=== PATIENT | male | born 1955 | race Caucasian/White ===

== ENCOUNTER 2019-05-28 18:35 | Inpatient (IN) | payer OTHER ==
[2019-05-28] MEDS ORDERED: Dextrose 50% Abboject 50 ML SYRINGE IVP PRN (20:17)
[2019-05-28] MEDS ORDERED: HumaLOG 300 UNITS/3 ML VIAL SC PRN (20:17)
[2019-05-28] MEDS ORDERED: Dextrose 5% in Water 1,000 ML IV PRN (20:17)
[2019-05-28] MEDS ORDERED: Haloperidol Lactate 5 MG/ML VIAL IM PRN (20:19)
[2019-05-28] MEDS ORDERED: Lorazepam 2 MG/ML VIAL SLOW IVP PRN (20:20)
[2019-05-28] MEDS: Carvedilol 6.25 MG TAB PO SCH (21:33)
[2019-05-28] MEDS: Famotidine 20 MG TAB PO SCH (21:33)
[2019-05-28] MEDS: Pregabalin 50 MG CAP PO SCH (21:34)
[2019-05-28] MEDS: Lantus 1000 UNITS/10 ML VIAL SC SCH (21:35)
[2019-05-28] MEDS: Apixaban 5 MG TAB PO SCH (21:35)
[2019-05-29] MEDS: Piperacillin/Tazobactam 3.375 GM in Sodium Chloride 0.9% 100 ML IVPB SCH ×3 (00:09→11:57)
[2019-05-29] MEDS: HumaLOG 300 UNITS/3 ML VIAL SC PRN ×2 (05:29→11:58)
[2019-05-29 05:59] LABS: #Basophils 0.1 thou/uL (0.0-0.2); #Eosinphils 0.2 thou/uL (0.0-0.7); #Lymphocytes 1.3 thou/uL (1.20-3.40); #Neutrophils 4.9 thou/uL (1.40-6.50); %Basophils 1.2 % (0.0-1.0); %Eosinophils 2.4 % (0.0-10.0); %Lymphocytes 17.8 % (21.0-51.0); %Monocytes 13.2 % (0.0-10.0); %Neutrophils 65.4 % (42.0-75.0); Hemoglobin 11.2 g/dL (14.0-18.0); Mean Corpuscular HGB CONC 32.2 g/dL (32.0-36.0); Mean Corpuscular Hemoglobin 27.5 pg (27.0-31.0); Mean Corpuscular Volume 85.3 fL (78.0-98.0); Mean Platelet Volume 7.3 fL (7.4-10.4); Platelet Count 136 thou/uL (130-400); RBC Distribution Width 15.4 % (11.5-14.5); Red Blood Cell (RBC) Count 4.08 mill/uL (4.70-6.10); White Blood Cell (WBC) Count 7.4 thou/uL (4.8-10.8)
[2019-05-29 06:18] LABS: ALT (SGPT) 14 U/L (8-55); AST (SGOT) 16 U/L (5-34); Albumin 3.3 g/dL (3.4-4.8); Alkaline Phosphatase 63 U/L (40-110); Anion Gap 13 mmol/L (10-20); BUN (Urea Nitrogen) 14 mg/dL (8.4-25.7); Bilirubin, Total 0.8 mg/dL (0.2-1.2); Calc. Creatinine Clearance 87 mL/min (70-130); Calcium 8.7 mg/dL (7.8-10.44); Carbon Dioxide 26 mmol/L (23-31); Chloride 104 mmol/L (98-107); Estimated GFR-MDRD 58; Globulin 2.7 g/dL (2.4-3.5); Glucose 169 mg/dL (80-115); Potassium 3.8 mmol/L (3.5-5.1); Sodium 139 mmol/L (136-145)
[2019-05-29] MEDS: Pregabalin 50 MG CAP PO SCH ×3 (09:17→22:07)
[2019-05-29] MEDS: Carvedilol 6.25 MG TAB PO SCH ×2 (09:17→21:13)
[2019-05-29] MEDS: Apixaban 5 MG TAB PO SCH ×2 (09:18→21:12)
[2019-05-29] MEDS: Rosuvastatin 10 MG TAB PO SCH (09:18)
[2019-05-29] MEDS: Dronedarone HCl 400 MG TAB PO SCH ×2 (09:18→17:44)
[2019-05-29] MEDS: Famotidine 20 MG TAB PO SCH ×2 (09:18→21:12)
[2019-05-29] MEDS: Potassium Chloride 20 MEQ TAB PO SCH (09:18)
[2019-05-29] MEDS: Lantus 1000 UNITS/10 ML VIAL SC SCH ×2 (09:19→21:15)
--- NOTE | 2019-05-29 14:12 | HP ---
CHIEF COMPLAINT: 1. Bilateral CVA, occipital lobe and temporal lobe, likely embolic. 2. Atrial fibrillation. 3. Right foot osteomyelitis. 4. IV antibiotics and physical therapy. BRIEF HISTORY: This is a 64-year-old male, who was admitted to [facility] on May 16 with altered mental status. He was initially placed on CPAP for respiratory distress and worked up for CVA. He apparently had a seizure on admission and was given Keppra and Ativan. He was switched over to BiPAP and continued to have respiratory distress and so he was sedated, intubated, and mechanically ventilated. His workup did confirm bilateral occipital CVA consistent with an embolic shower. MR angiogram showed nonspecific vessel narrowing which was felt to be not significant. Carotid Dopplers are negative for any stenosis. Transthoracic echocardiogram showed a dilated atrium, but did not show any obvious thrombus. He did not have a SANFORD. He was started on Eliquis. He was also noted to have bilateral foot ulcers and cultures grew E coli and Pseudomonas. There is concern for osteomyelitis, and Dr. Sanz has recommended 4 weeks of IV antibiotic with Zerbaxa instead of Zosyn and aminoglycoside combination, which may affect his kidneys. Currently, the patient is up in bed and still having some orientation issues. He was not sure what today is. He states that he wants to go home and I tried to explain to him that he is due to get 4 weeks of IV antibiotics and a wound VAC, which he unfortunately removed it prior to his transfer here. I told him that coming Friday the liturgical music director can try to contact his insurance and see if doing outpatient antibiotic is feasible. I also told him he needs to be cleared by therapy that he is safe to go home and do his activities of daily living. No family at bedside. PAST MEDICAL HISTORY: 1. Diabetes mellitus, type 2. 2. Peripheral vascular disease. 3. Hypertension. 4. Dyslipidemia. 5. Diabetic peripheral neuropathy. PAST SURGICAL HISTORY: 1. Right second toe amputation. 2. History of foot ulcer debridement. ALLERGIES: SEAFOOD. FAMILY HISTORY: Noncontributory. PSYCHOSOCIAL HISTORY: . Denies any current tobacco, alcohol, or recreational drug abuse. MEDICATIONS: He has been transferred here on the following medications: 1. Eliquis 5 mg b.i.d. 2. Carvedilol 12.5 mg b.i.d. 3. Multaq 400 mg b.i.d. 4. Pepcid 20 mg b.i.d. 5. Haldol 2.5 mg IM q.4 hours p.r.n. agitation. 6. Lantus 20 units subcu b.i.d. 7. Humalog sliding scale. 8. Dilantin 100 mg t.i.d. 9. He is currently on Zosyn 3.375 g q.6 hours, but he will be switched to the Zerbaxa once available. 10. He is also on potassium 40 mEq daily. 11. Lyrica 100 mg t.i.d. 12. Crestor 40 mg daily. REVIEW OF SYSTEMS: CARDIOVASCULAR SYSTEM: The patient denies any chest pain, shortness of breath, palpitations, PND, orthopnea, or pedal edema. RESPIRATORY SYSTEM: Denies any chronic cough, expectoration, or pleuritic type chest pain. GASTROINTESTINAL SYSTEM: Denies any nausea, vomiting, diarrhea, constipation, hematemesis, melena, or hematochezia. GENITOURINARY SYSTEM: Denies any frequency, urgency, dysuria, or hematuria. CENTRAL NERVOUS SYSTEM: Other than episodes of confusion, he denies any focal numbness, weakness, or fainting spells. HEENT: He denies any difficulty with speech, vision, hearing, or swallowing. SKIN: He denies any rash. PHYSICAL EXAMINATION: GENERAL: A 64-year-old male, who is resting comfortably in bed and denies any concerns. VITAL SIGNS: He is afebrile. Heart rate is 95, respirations 20, blood pressure 155/74, and oxygen saturation 95% on room air. HEENT: Normocephalic and atraumatic. Pupils equally reactive to light and accommodation. Extraocular muscles intact. NECK: No JVD, thyromegaly, cervical lymphadenopathy, or throat exudates. No carotid bruits. CARDIOVASCULAR SYSTEM: S1 and S2 plus. RESPIRATORY SYSTEM: Normal vesicular breath sounds. ABDOMEN: Soft and nontender. Bowel sounds heard in all quadrants. EXTREMITIES: Without cyanosis or clubbing. Dressing over his right foot wound. CENTRAL NERVOUS SYSTEM: Awake and responsive, not oriented to time. Strength is equal and normal. LABORATORY VALUES: White count is 7.4, H and H are 11.2 and 34.8. Sodium 139, potassium 3.8, and BUN and creatinine are 14 and 1.25. Blood sugars are 197, 190, 164, and 169. Liver function tests are within normal limits. IMPRESSION: 1. Right foot osteomyelitis. 2. Embolic cerebrovascular accident involving both occipital lobes. 3. Resolved renal failure. 4. Atrial fibrillation. 5. New onset seizure. 6. Hypertension. 7. Dyslipidemia. 8. Peripheral vascular disease. 9. Wound infection with Escherichia coli and Pseudomonas. PLAN: 1. Continue discharge medications from previous hospital. 2. Start him on the new antibiotic once it is available. 3. 1800 calorie heart healthy ADA diet. 4. Accu-Cheks with sliding scale coverage. 5. Monitor neuro status. 6. Physical therapy. 7. Wound care. 8. Routine laboratory values. 9. Monitor heart rate and rhythm. 10. Seizure precautions. 11. Discussed with the patient and nursing in detail. All questions answered. Job ID: [id number]
[2019-05-29] MEDS ORDERED: CEFTOLOZANE FS SCH (15:30)
[2019-05-29] MEDS ORDERED: TAZOBACTAM FS SCH (15:30)
[2019-05-29] MEDS: TAZOBACTAM FS SCH (21:09)
[2019-05-29] MEDS: CEFTOLOZANE FS SCH (21:09)
[2019-05-30] MEDS: CEFTOLOZANE FS SCH ×3 (05:52→21:42)
[2019-05-30] MEDS: TAZOBACTAM FS SCH ×3 (05:52→21:42)
[2019-05-30 08:11] VITALS: BMI 24.9
[2019-05-30] MEDS: Potassium Chloride 20 MEQ TAB PO SCH (08:59)
[2019-05-30] MEDS: Dronedarone HCl 400 MG TAB PO SCH ×2 (08:59→17:16)
[2019-05-30] MEDS: Carvedilol 6.25 MG TAB PO SCH ×2 (09:04→21:40)
[2019-05-30] MEDS: Apixaban 5 MG TAB PO SCH ×2 (09:04→21:40)
[2019-05-30] MEDS: Rosuvastatin 10 MG TAB PO SCH (09:04)
[2019-05-30] MEDS: Pregabalin 50 MG CAP PO SCH ×3 (09:04→21:41)
[2019-05-30] MEDS: Lantus 1000 UNITS/10 ML VIAL SC SCH ×2 (09:04→21:39)
[2019-05-30] MEDS: Famotidine 20 MG TAB PO SCH ×2 (09:04→21:40)
[2019-05-30] MEDS: HumaLOG 300 UNITS/3 ML VIAL SC PRN (11:57)
--- NOTE | 2019-05-30 15:12 | PRG ---
DATE OF SERVICE: 05/30/2019 SUBJECTIVE: Mr. Rivers is doing well. He is tolerating his new antibiotic, Zerbaxa. Denies any chest pain or shortness of breath. No breakthrough seizures. Family in the room and all questions answered. OBJECTIVE: VITAL SIGNS: He is afebrile, heart rate 68, respirations 18, oxygen saturation 98% on room air, and blood pressure 134/62. CARDIOVASCULAR SYSTEM: S1 and S2 plus. RESPIRATORY SYSTEM: Normal vesicular breath sounds. ABDOMEN: Soft and nontender. Bowel sounds in all quadrants. EXTREMITIES: Without cyanosis or clubbing CENTRAL NERVOUS SYSTEM: Awake and responsive. Generalized weakness. LABORATORY DATA: Blood sugars are 119, 172, 96, and 213. IMPRESSION: 1. Right foot osteomyelitis, requiring IV Zerbaxa until 06/26. 2. Diabetes mellitus, type 2. 3. Hypertension. 4. Dyslipidemia. 5. Peripheral vascular disease. 6. Recent embolic cerebrovascular accident. 7. Atrial fibrillation. 8. New-onset seizures. PLAN: 1. Continue current medications. 2. 1800-calorie heart-healthy ADA diet. 3. Accu-Cheks with sliding scale coverage. 4. DVT prophylaxis, he is on Eliquis. 5. Decubitus precautions. 6. Stress ulcer prophylaxis. 7. Weekly CBC, CRP, CMP, and sedimentation rate. 8. Continue physical therapy. 9. We will have Case Management start working on looking into him getting outpatient antibiotics and wound care. Job ID: [id number]
[2019-05-31] MEDS: CEFTOLOZANE FS SCH ×3 (05:33→21:45)
[2019-05-31] MEDS: TAZOBACTAM FS SCH ×3 (05:33→21:45)
[2019-05-31] MEDS: Dronedarone HCl 400 MG TAB PO SCH ×2 (08:23→17:55)
[2019-05-31] MEDS: Rosuvastatin 10 MG TAB PO SCH (08:24)
[2019-05-31] MEDS: Potassium Chloride 20 MEQ TAB PO SCH (08:26)
[2019-05-31] MEDS: Apixaban 5 MG TAB PO SCH ×2 (08:27→21:41)
[2019-05-31] MEDS: Famotidine 20 MG TAB PO SCH ×2 (08:27→21:38)
[2019-05-31] MEDS: Carvedilol 6.25 MG TAB PO SCH ×2 (08:28→21:38)
[2019-05-31] MEDS: Pregabalin 50 MG CAP PO SCH ×3 (09:55→21:43)
[2019-05-31] MEDS: Lantus 1000 UNITS/10 ML VIAL SC SCH ×2 (11:03→21:40)
--- NOTE | 2019-05-31 14:12 | PRG ---
DATE OF SERVICE: 05/31/2019 SUBJECTIVE: Mr. Rivers is doing well. Denies any complaints. Tolerating his antibiotics. He did have a low blood sugar this morning. He states that normally he takes 10 units twice daily at home. He may have needed 20 units when he was having the inflammatory process, but now that is resolving, he may not need as much. I advised him that I will cut him back down to 10 b.i.d. I also informed the charge nurse to start working on trying to see if he qualifies for outpatient antibiotic therapy and wound VAC care. OBJECTIVE: VITAL SIGNS: He is afebrile. Heart rate 59, respirations 18, oxygen saturation 98% on room air, blood pressure 138/63. CARDIOVASCULAR: S1, S2 plus. RESPIRATORY: Normal vesicular breath sounds. ABDOMEN: Soft, nontender, bowel sounds heard in all quadrants. EXTREMITIES: Without cyanosis or clubbing. Right foot with wound VAC. CENTRAL NERVOUS SYSTEM: Awake and responsive. Grossly nonfocal. LABORATORY DATA: Blood sugars are 213, 77, 155, 54, and 72. IMPRESSION: 1. Diabetes mellitus, type 2. 2. Right foot osteomyelitis. 3. Bilateral occipital lobe embolic cerebrovascular accident. 4. Hypertension. 5. Dyslipidemia. 6. Peripheral vascular disease. 7. Atrial fibrillation. 8. New-onset seizures. PLAN: 1. Continue current medications. 2. 1800-calorie heart healthy ADA diet. 3. Accu-Cheks with sliding scale coverage. 4. DVT prophylaxis - he is on Eliquis. 5. Decubitus precaution. 6. Wound care. 7. Reduce Lantus to 10 units b.i.d. 8. Weekly CBC, CRP, CMP, and sedimentation rate. 9. Case Management to work on seeing if he qualifies for outpatient antibiotic and wound care. Job ID: [id number]
[2019-05-31] MEDS: Sodium Chloride 0.9% 10 ML ONE (21:44)
[2019-06-01] MEDS: TAZOBACTAM FS SCH ×2 (05:57→15:05)
[2019-06-01] MEDS: CEFTOLOZANE FS SCH ×2 (05:57→15:05)
[2019-06-01] MEDS: Pregabalin 50 MG CAP PO SCH ×3 (08:30→21:26)
[2019-06-01] MEDS: Carvedilol 6.25 MG TAB PO SCH ×2 (08:31→21:27)
[2019-06-01] MEDS: Potassium Chloride 20 MEQ TAB PO SCH (08:32)
[2019-06-01] MEDS: Dronedarone HCl 400 MG TAB PO SCH ×2 (08:32→17:15)
[2019-06-01] MEDS: Rosuvastatin 10 MG TAB PO SCH (08:32)
[2019-06-01] MEDS: Famotidine 20 MG TAB PO SCH ×2 (08:32→21:27)
[2019-06-01] MEDS: Apixaban 5 MG TAB PO SCH ×2 (08:32→21:28)
[2019-06-01] MEDS: Lantus 1000 UNITS/10 ML VIAL SC SCH ×2 (08:33→21:36)
--- NOTE | 2019-06-01 13:40 | PRG ---
DATE OF SERVICE: 06/01/2019 SUBJECTIVE: Mr. Rivers is doing well. Denies any complaints. Resting comfortably. Tolerating his medications and his wound VAC. Staff is working and trying to see if he qualifies for outpatient antibiotics and outpatient wound VAC treatment. He is ambulating well and really does not need any therapy. OBJECTIVE: VITAL SIGNS: He is afebrile, heart rate 66, respirations 18, oxygen saturation 97% on room air, and blood pressure 147/69. CARDIOVASCULAR: S1 and S2 plus. RESPIRATORY: Normal vesicular breath sounds. ABDOMEN: Soft, nontender. Bowel sounds heard in all quadrants. EXTREMITIES: Without cyanosis or clubbing. Right foot with a wound VAC. CENTRAL NERVOUS SYSTEM: Awake and responsive. Grossly nonfocal. LABORATORY DATA: Blood sugars are 160, 175, 82, and 175. IMPRESSION: 1. Diabetes mellitus, type 2. 2. Right foot osteomyelitis. 3. Embolic bilateral occipital CVA. 4. Hypertension. 5. Dyslipidemia. 6. Peripheral vascular disease. 7. Atrial fibrillation. 8. New onset seizures. PLAN: 1. Continue current medications. 2. 1800-calorie heart healthy ADA diet. 3. Accu-Cheks with sliding scale coverage. 4. DVT prophylaxis-he is on Eliquis. 5. Decubitus precautions. 6. Stress ulcer prophylaxis. 7. Doing better on reduced dose of Lantus. 8. Check CBC, CMP, CRP, and sedimentation rate tomorrow. Job ID: [id number]
[2019-06-01] MEDS: Sodium Chloride 0.9% 10 ML ONE (15:04)
[2019-06-02 05:41] LABS: #Basophils 0.1 thou/uL (0.0-0.2); #Eosinphils 0.2 thou/uL (0.0-0.7); #Lymphocytes 1.2 thou/uL (1.20-3.40); #Monocytes 0.8 thou/uL (0.11-0.59); %Basophils 1.5 % (0.0-1.0); %Eosinophils 4.1 % (0.0-10.0); %Lymphocytes 23.2 % (21.0-51.0); %Monocytes 14.9 % (0.0-10.0); %Neutrophils 56.4 % (42.0-75.0); Hemoglobin 10.6 g/dL (14.0-18.0); Hypochromia SLIGHT = 6-15 cells (100X) (0-5/hpf); MDiff Complete? YES; Mean Corpuscular HGB CONC 31.8 g/dL (32.0-36.0); Mean Corpuscular Hemoglobin 27.6 pg (27.0-31.0); Mean Corpuscular Volume 86.7 fL (78.0-98.0); Mean Platelet Volume 8.5 fL (7.4-10.4); Platelet Count 112 thou/uL (130-400); Platelet Morphology Comment Appears Decreased; RBC Distribution Width 15.8 % (11.5-14.5); Red Blood Cell (RBC) Count 3.84 mill/uL (4.70-6.10); White Blood Cell (WBC) Count 5.3 thou/uL (4.8-10.8)
[2019-06-02 05:48] LABS: ALT (SGPT) 21 U/L (8-55); AST (SGOT) 21 U/L (5-34); Albumin 3.2 g/dL (3.4-4.8); Alkaline Phosphatase 72 U/L (40-110); Anion Gap 13 mmol/L (10-20); BUN (Urea Nitrogen) 15 mg/dL (8.4-25.7); Bilirubin, Total 0.4 mg/dL (0.2-1.2); CRP (Inflammatory) 1.76 mg/dL (= or < 0.5); Calc. Creatinine Clearance 104 mL/min (70-130); Calcium 8.8 mg/dL (7.8-10.44); Carbon Dioxide 27 mmol/L (23-31); Chloride 106 mmol/L (98-107); Estimated GFR-MDRD 71; Globulin 2.5 g/dL (2.4-3.5); Glucose 116 mg/dL (80-115); Potassium 4.5 mmol/L (3.5-5.1); Protein, Total 5.7 g/dL (5.8-8.1); Sodium 141 mmol/L (136-145)
[2019-06-02] MEDS: Lantus 1000 UNITS/10 ML VIAL SC SCH ×2 (08:54→20:44)
[2019-06-02] MEDS: Famotidine 20 MG TAB PO SCH ×2 (08:54→20:46)
[2019-06-02] MEDS: Pregabalin 50 MG CAP PO SCH ×3 (08:55→20:45)
[2019-06-02] MEDS: Dronedarone HCl 400 MG TAB PO SCH ×2 (08:55→16:46)
[2019-06-02] MEDS: Potassium Chloride 20 MEQ TAB PO SCH (08:55)
[2019-06-02] MEDS: Rosuvastatin 10 MG TAB PO SCH (08:55)
[2019-06-02] MEDS: Carvedilol 6.25 MG TAB PO SCH ×2 (08:56→20:44)
[2019-06-02] MEDS: Apixaban 5 MG TAB PO SCH ×2 (08:56→20:46)
[2019-06-02] MEDS: HumaLOG 300 UNITS/3 ML VIAL SC PRN (11:59)
--- NOTE | 2019-06-02 13:45 | PRG ---
DATE OF SERVICE: 06/02/2019 SUBJECTIVE: Mr. Rivers is doing well, denies any complaints. He finally had a bowel movement and he is feeling much better. Tolerating his antibiotics. I informed him that Case Management and the hospital staff are working on trying to get him qualified for outpatient antibiotics and wound VAC. OBJECTIVE: VITAL SIGNS: He is afebrile. Heart rate 62, respirations 18, oxygen saturation 96% on room air, blood pressure 136/70. CARDIOVASCULAR SYSTEM: S1 and S2 plus. RESPIRATORY SYSTEM: Normal vesicular breath sounds. ABDOMEN: Soft and nontender. Bowel sounds heard in all quadrants. EXTREMITIES: Without cyanosis or clubbing. Right foot with a wound VAC. CENTRAL NERVOUS SYSTEM: Awake and responsive. Generalized weakness. LABORATORY VALUES: Done this morning show a white count of 5.3, hemoglobin and hematocrit are 10.6 and 33.3, platelet count is 112. Sedimentation rate is 10. Sodium 141, potassium 4.5, BUN and creatinine are 15 and 1.06, with blood sugars of 153, 257, 116, and 168. Liver function tests are normal. IMPRESSION: 1. Right foot osteomyelitis, requiring wound VAC and long-term antibiotics. 2. Embolic bilateral occipital cerebrovascular accident. 3. Diabetes mellitus, type 2. 4. Atrial fibrillation. 5. Hypertension. 6. Dyslipidemia. 7. Peripheral vascular disease. 8. New onset seizures. PLAN: 1. Continue current medications including antibiotics. 2. 1800-calorie heart healthy ADA diet. 3. Accu-Cheks with sliding scale coverage. 4. DVT prophylaxis, he is on Eliquis. 5. Decubitus precautions. 6. Stress ulcer prophylaxis. 7. Routine laboratory values. 8. Physical therapy. 9. Wound VAC care. Job ID: [id number]
[2019-06-02] MEDS: Sodium Chloride 0.9% 40 ML ONE ×2 (15:05→20:51)
[2019-06-03] MEDS: Sodium Chloride 0.9% 10 ML ONE (05:41)
[2019-06-03] MEDS: Lantus 1000 UNITS/10 ML VIAL SC SCH ×2 (08:35→20:58)
[2019-06-03] MEDS: Pregabalin 50 MG CAP PO SCH ×3 (08:36→21:00)
[2019-06-03] MEDS: Carvedilol 6.25 MG TAB PO SCH ×2 (08:36→21:00)
[2019-06-03] MEDS: Dronedarone HCl 400 MG TAB PO SCH ×2 (08:36→17:39)
[2019-06-03] MEDS: Potassium Chloride 20 MEQ TAB PO SCH (08:36)
[2019-06-03] MEDS: Rosuvastatin 10 MG TAB PO SCH (08:37)
[2019-06-03] MEDS: Famotidine 20 MG TAB PO SCH ×2 (08:37→21:00)
[2019-06-03] MEDS: Apixaban 5 MG TAB PO SCH ×2 (08:37→21:00)
[2019-06-03] MEDS: HumaLOG 300 UNITS/3 ML VIAL SC PRN (12:01)
[2019-06-03] MEDS ORDERED: Acetaminophen 325 MG TAB PO PRN (13:14)
--- NOTE | 2019-06-03 14:09 | PRG ---
DATE OF SERVICE: 06/03/2019 SUBJECTIVE: Mr. Rivers noticed some right foot pain last night, which lasted for an hour, but it resolved spontaneously. He does not have anything ordered for pain now. He just wants Tylenol. Staffs are still working to arrange his outpatient antibiotics. OBJECTIVE: VITAL SIGNS: He is afebrile. Heart rate 64, respirations 16, oxygen saturation 99% on room air, and blood pressure 137/63. CARDIOVASCULAR: S1 and S2 plus. RESPIRATORY: Normal vesicular breath sounds. ABDOMEN: Soft, nontender. Bowel sounds heard in all quadrants. EXTREMITIES: Without cyanosis or clubbing. Right foot with wound VAC. CENTRAL NERVOUS SYSTEM: Awake and responsive. Generalized weakness. LABORATORY DATA: Blood sugars are 168, 117, 249, 103, and 221. IMPRESSION: 1. Right foot osteomyelitis, requiring wound VAC and long-term antibiotics. 2. Diabetes mellitus type 2. 3. Recent embolic bilateral occipital CVA. 4. Peripheral vascular disease. 5. Hypertension. 6. Atrial fibrillation. 7. New onset seizures. PLAN: 1. Continue current medications. 2. 1800-calorie heart healthy ADA diet. 3. Wound VAC. 4. Continue antibiotics. 5. Physical therapy. 6. Routine laboratory values. 7. DVT prophylaxis-he is on Eliquis. 8. Seizure precautions. 9. Start Tylenol 650 q.6 p.r.n. Job ID: [id number]
[2019-06-03] MEDS ORDERED: Sodium Chloride 0.9% 10 ML ONE (15:33)
[2019-06-04] MEDS: Dronedarone HCl 400 MG TAB PO SCH ×2 (08:28→16:18)
[2019-06-04] MEDS: Potassium Chloride 20 MEQ TAB PO SCH (08:30)
[2019-06-04] MEDS: Apixaban 5 MG TAB PO SCH ×2 (08:31→20:45)
[2019-06-04] MEDS: Carvedilol 6.25 MG TAB PO SCH ×2 (08:32→20:44)
[2019-06-04] MEDS: Famotidine 20 MG TAB PO SCH ×2 (08:37→20:44)
[2019-06-04] MEDS: Pregabalin 50 MG CAP PO SCH ×3 (08:38→21:14)
[2019-06-04] MEDS: Rosuvastatin 10 MG TAB PO SCH (08:46)
[2019-06-04] MEDS: Lantus 1000 UNITS/10 ML VIAL SC SCH ×2 (08:53→20:42)
--- NOTE | 2019-06-04 09:30 | PRG ---
DATE OF SERVICE: 06/04/2019 SUBJECTIVE: Mr. Rivers is doing the same. He did require some Tylenol last night. He is tolerating his wound VAC and his antibiotics. Denies any concerns or questions. No family at bedside. Discussed with nursing. OBJECTIVE: VITAL SIGNS: He is afebrile. Heart rate 61, respirations 18, oxygen saturation 95% on room air, blood pressure 113/57. CARDIOVASCULAR SYSTEM: S1 and S2 plus. RESPIRATORY SYSTEM: Normal vesicular breath sounds. ABDOMEN: Soft. Nontender. Bowel sounds heard in all quadrants. EXTREMITIES: Without cyanosis or clubbing. Right foot with wound VAC. CENTRAL NERVOUS SYSTEM: Awake and responsive. Grossly nonfocal. IMPRESSION: 1. Right foot osteomyelitis. 2. Embolic bilateral occipital cerebrovascular accident. 3. Diabetes mellitus, type 2. 4. Hypertension. 5. Atrial fibrillation. 6. New onset seizures. 7. Dyslipidemia. 8. Peripheral vascular disease. PLAN: 1. Continue current medications. 2. 1800-calorie heart healthy ADA diet. 3. Accu-Cheks with sliding scale coverage. 4. DVT prophylaxis with Eliquis. 5. Decubitus precautions. 6. Stress ulcer prophylaxis. 7. Wound VAC care. 8. Arrangements are underway to see if he qualifies for outpatient antibiotics and wound VAC. Job ID: [id number]
[2019-06-04] MEDS: HumaLOG 300 UNITS/3 ML VIAL SC PRN (12:28)
[2019-06-04] MEDS: Sodium Chloride 0.9% 10 ML ONE (14:25)
[2019-06-05] MEDS: Rosuvastatin 10 MG TAB PO SCH (08:41)
[2019-06-05] MEDS: Famotidine 20 MG TAB PO SCH ×2 (08:43→20:59)
[2019-06-05] MEDS: Dronedarone HCl 400 MG TAB PO SCH ×2 (08:44→16:31)
[2019-06-05] MEDS: Apixaban 5 MG TAB PO SCH ×2 (08:44→20:59)
[2019-06-05] MEDS: Pregabalin 50 MG CAP PO SCH ×3 (08:44→20:58)
[2019-06-05] MEDS: Carvedilol 6.25 MG TAB PO SCH ×2 (08:46→20:59)
[2019-06-05] MEDS: Potassium Chloride 20 MEQ TAB PO SCH (08:47)
[2019-06-05] MEDS: Lantus 1000 UNITS/10 ML VIAL SC SCH ×2 (08:56→20:59)
[2019-06-05] MEDS: HumaLOG 300 UNITS/3 ML VIAL SC PRN (11:29)
--- NOTE | 2019-06-05 12:23 | PRG ---
DATE OF SERVICE: 06/05/2019 SUBJECTIVE: Mr. Rivers is doing the same. Denies any complaints. Resting comfortably. He would like to go home on pass. He is stable and approved. OBJECTIVE: VITAL SIGNS: He is afebrile. Heart rate 59, respirations 18, oxygen saturation 97% on room air, and blood pressure 129/70. CARDIOVASCULAR SYSTEM: S1 and S2 plus. RESPIRATORY SYSTEM: Normal vesicular breath sounds. ABDOMEN: Soft and nontender. Bowel sounds heard in all quadrants. EXTREMITIES: Without cyanosis or clubbing. Right foot with wound VAC. CENTRAL NERVOUS SYSTEM: Awake and responsive. Grossly nonfocal. IMPRESSION: 1. Right foot osteomyelitis. 2. Embolic bilateral occipital cerebrovascular accident. 3. Diabetes mellitus, type 2. 4. Hypertension. 5. Atrial fibrillation. 6. New onset seizures. 7. Peripheral vascular disease. PLAN: 1. Continue current medications. 2. Nutritional support. 3. 1800 calorie heart healthy ADA diet. 4. Accu-Cheks with sliding scale coverage. 5. Fluctuating blood sugars, but the patient does not want to increase the Lantus. He is aware of the risks. 6. Okay to go out on pass. 7. Continue IV antibiotics and still trying to arrange for outpatient antibiotics and wound VAC. Job ID: [id number]
[2019-06-06] MEDS: Dronedarone HCl 400 MG TAB PO SCH ×2 (08:24→16:29)
[2019-06-06] MEDS: Potassium Chloride 20 MEQ TAB PO SCH (08:24)
[2019-06-06] MEDS: Famotidine 20 MG TAB PO SCH ×2 (08:24→20:44)
[2019-06-06] MEDS: Apixaban 5 MG TAB PO SCH ×2 (08:24→20:45)
[2019-06-06] MEDS: Rosuvastatin 10 MG TAB PO SCH (08:24)
[2019-06-06] MEDS: Pregabalin 50 MG CAP PO SCH ×3 (08:25→20:44)
[2019-06-06] MEDS: Carvedilol 6.25 MG TAB PO SCH ×2 (08:25→20:45)
[2019-06-06] MEDS: Lantus 1000 UNITS/10 ML VIAL SC SCH ×2 (08:26→20:43)
--- NOTE | 2019-06-06 10:41 | PRG ---
DATE OF SERVICE: 06/06/2019 SUBJECTIVE: Mr. Rivers is doing well. He enjoyed his pass yesterday. Denies any complaints. Tolerating his antibiotics. He wants to go out on pass again today. OBJECTIVE: VITAL SIGNS: He is afebrile. Heart rate 56, respirations 16, oxygen saturation 98% on room air, blood pressure 148/73. CARDIOVASCULAR: S1 and S2 plus. RESPIRATORY: Normal vesicular breath sounds. ABDOMEN: Soft, nontender. Bowel sounds heard in all quadrants. EXTREMITIES: Without cyanosis or clubbing. Right foot with wound VAC. CENTRAL NERVOUS SYSTEM: Awake and responsive. Grossly nonfocal. IMPRESSION: 1. Right foot osteomyelitis. 2. Diabetes mellitus type 2. 3. Hypertension. 4. Atrial fibrillation. 5. New-onset seizure. 6. Peripheral vascular disease. 7. Embolic bilateral occipital CVA with no real residuals. PLAN: 1. Continue current medications. 2. 1800 calorie heart healthy ADA diet. 3. Accu-Cheks with sliding scale coverage. 4. Monitor blood pressure and adjust medications as needed. 5. DVT prophylaxis - he is on Eliquis. 6. Decubitus precaution. 7. Stress ulcer prophylaxis. 8. Seizure precautions. 9. Routine laboratory values. Job ID: [id number]
[2019-06-06] MEDS: HumaLOG 300 UNITS/3 ML VIAL SC PRN (12:15)
[2019-06-07] MEDS: Potassium Chloride 20 MEQ TAB PO SCH (08:10)
[2019-06-07] MEDS: Dronedarone HCl 400 MG TAB PO SCH ×2 (08:10→16:41)
[2019-06-07] MEDS: Famotidine 20 MG TAB PO SCH ×2 (08:11→21:29)
[2019-06-07] MEDS: Apixaban 5 MG TAB PO SCH ×2 (08:11→21:29)
[2019-06-07] MEDS: Carvedilol 6.25 MG TAB PO SCH ×2 (08:12→21:28)
[2019-06-07] MEDS: Pregabalin 50 MG CAP PO SCH ×3 (08:14→21:29)
[2019-06-07] MEDS: Rosuvastatin 10 MG TAB PO SCH (08:19)
[2019-06-07] MEDS: Lantus 1000 UNITS/10 ML VIAL SC SCH ×2 (08:46→21:28)
[2019-06-07] MEDS: HumaLOG 300 UNITS/3 ML VIAL SC PRN (11:39)
[2019-06-07] MEDS ORDERED: Sodium Chloride 0.9% 20 ML ONE (14:01)
--- NOTE | 2019-06-07 14:11 | PRG ---
DATE OF SERVICE: 06/07/2019 SUBJECTIVE: Mr. Rivers is doing well. server service assistant is working on arranging for outpatient antibiotics and wound VAC. Apparently, home health situation is sorted out. His home wound VAC is here already IV antibiotics. The patient is doing well otherwise. Denies any complaints. OBJECTIVE: VITAL SIGNS: He is afebrile. Heart rate 57, respirations 16, oxygen saturation 98% on room air, blood pressure 133/77. CARDIOVASCULAR: S1 and S2 plus. RESPIRATORY: Normal vesicular breath sounds. ABDOMEN: Soft, nontender. Bowel sounds in all quadrants. EXTREMITIES: Without cyanosis or clubbing. Right foot with wound VAC. Left foot with dressing CENTRAL NERVOUS SYSTEM: Grossly nonfocal. IMPRESSION: 1. Right foot osteomyelitis on long-term IV antibiotics. 2. Left foot infection, requiring wound care. 3. Diabetes mellitus, type 2. 4. Bilateral occipital embolic cerebrovascular accident. 5. Atrial fibrillation. 6. New onset seizures. PLAN: 1. Continue current medications. 2. 1800 calorie heart healthy ADA diet. 3. Accu-Cheks with sliding scale coverage. 4. DVT prophylaxis. He is on Eliquis. 5. Decubitus precautions. 6. Stress ulcer prophylaxis. 7. Wound VAC care. 8. Continue IV antibiotics. 9. Physical therapy. 10. Accu-Cheks with sliding scale coverage. 11. Routine laboratory values. Job ID: [id number]
[2019-06-08] MEDS: Rosuvastatin 10 MG TAB PO SCH (08:48)
[2019-06-08] MEDS: Carvedilol 6.25 MG TAB PO SCH ×2 (08:49→20:52)
[2019-06-08] MEDS: Apixaban 5 MG TAB PO SCH ×2 (08:49→20:52)
[2019-06-08] MEDS: Famotidine 20 MG TAB PO SCH ×2 (08:49→20:52)
[2019-06-08] MEDS: Dronedarone HCl 400 MG TAB PO SCH ×2 (08:49→17:41)
[2019-06-08] MEDS: Pregabalin 50 MG CAP PO SCH ×3 (08:49→20:52)
[2019-06-08] MEDS: Potassium Chloride 20 MEQ TAB PO SCH (08:50)
[2019-06-08] MEDS: Lantus 1000 UNITS/10 ML VIAL SC SCH ×2 (08:53→20:51)
[2019-06-08] MEDS: HumaLOG 300 UNITS/3 ML VIAL SC PRN (12:01)
--- NOTE | 2019-06-08 13:58 | PRG ---
DATE OF SERVICE: 06/08/2019 SUBJECTIVE: Mr. Rivers is doing well. Denies any complaints. Seen on his way to his case conference. OBJECTIVE: VITAL SIGNS: He is afebrile, heart rate 59, respirations 18, oxygen saturation 95% on room air, blood pressure 139/68. CARDIOVASCULAR SYSTEM: S1 and S2 plus. RESPIRATORY SYSTEM: Normal vesicular breath sounds. ABDOMEN: Soft, nontender. Bowel sounds heard in all quadrants. EXTREMITIES: Without cyanosis or clubbing. Peripheral pulses are palpable. Right foot with a wound VAC. CENTRAL NERVOUS SYSTEM: Grossly nonfocal. IMPRESSION: 1. Right foot osteomyelitis, requiring wound VAC. 2. Diabetes mellitus, type 2. 3. Atrial fibrillation. 4. New onset seizures. 5. Bilateral occipital embolic cerebrovascular accident. PLAN: 1. Continue current medications. Wean antibiotics. 2. Arrange for outpatient antibiotics and wound VAC. 3. Recheck CBC, CRP, CMP, and sedimentation rate tomorrow. 4. 1800 calorie heart healthy ADA diet. 5. Seizure precautions. 6. Continue Eliquis. 7. Wound VAC care. Job ID: [id number]
[2019-06-09 06:07] LABS: #Basophils 0.1 thou/uL (0.0-0.2); #Eosinphils 0.2 thou/uL (0.0-0.7); #Lymphocytes 1.1 thou/uL (1.20-3.40); #Monocytes 0.5 thou/uL (0.11-0.59); #Neutrophils 2.7 thou/uL (1.40-6.50); %Basophils 1.3 % (0.0-1.0); %Eosinophils 4.8 % (0.0-10.0); %Lymphocytes 23.5 % (21.0-51.0); %Monocytes 10.4 % (0.0-10.0); %Neutrophils 59.9 % (42.0-75.0); Hemoglobin 10.8 g/dL (14.0-18.0); Mean Corpuscular Hemoglobin 28.4 pg (27.0-31.0); Mean Platelet Volume 8.7 fL (7.4-10.4); Platelet Count 71 thou/uL (130-400); Platelet Morphology Comment Appears Decreased; RBC Distribution Width 14.8 % (11.5-14.5); RBC Morphology Normal; Red Blood Cell (RBC) Count 3.82 mill/uL (4.70-6.10); White Blood Cell (WBC) Count 4.5 thou/uL (4.8-10.8)
[2019-06-09 06:15] LABS: Manual Diff?? NO
[2019-06-09 06:18] LABS: ALT (SGPT) 32 U/L (8-55); AST (SGOT) 27 U/L (5-34); Albumin 3.3 g/dL (3.4-4.8); Alkaline Phosphatase 83 U/L (40-110); Anion Gap 11 mmol/L (10-20); BUN (Urea Nitrogen) 12 mg/dL (8.4-25.7); Bilirubin, Total 0.5 mg/dL (0.2-1.2); CRP (Inflammatory) 0.81 mg/dL (= or < 0.5); Calc. Creatinine Clearance 111 mL/min (70-130); Calcium 8.7 mg/dL (7.8-10.44); Carbon Dioxide 29 mmol/L (23-31); Chloride 107 mmol/L (98-107); Estimated GFR-MDRD 76; Globulin 2.7 g/dL (2.4-3.5); Glucose 80 mg/dL (80-115); Potassium 3.8 mmol/L (3.5-5.1); Sodium 143 mmol/L (136-145)
[2019-06-09] MEDS: Pregabalin 50 MG CAP PO SCH (08:18)
[2019-06-09] MEDS: Rosuvastatin 10 MG TAB PO SCH (08:18)
[2019-06-09] MEDS: Dronedarone HCl 400 MG TAB PO SCH (08:18)
[2019-06-09] MEDS: Carvedilol 6.25 MG TAB PO SCH (08:19)
[2019-06-09] MEDS: Famotidine 20 MG TAB PO SCH (08:19)
[2019-06-09] MEDS: Apixaban 5 MG TAB PO SCH (08:19)
[2019-06-09] MEDS: Potassium Chloride 20 MEQ TAB PO SCH (08:19)
[2019-06-09] MEDS: Lantus 1000 UNITS/10 ML VIAL SC SCH (08:20)
[2019-06-09 08:37] VITALS: TEMP 98
[2019-06-09 08:40] VITALS: BP 145/70
--- NOTE | 2019-06-10 13:14 | DIS ---
DATE OF ADMISSION: 05/28/2019 DATE OF DISCHARGE: 06/09/2019 PRINCIPAL DIAGNOSIS: Right foot osteomyelitis. SECONDARY DIAGNOSES: 1. Left foot diabetic ulcer. 2. Peripheral vascular disease. 3. Atrial fibrillation. 4. Bilateral occipital embolic cerebrovascular accident. 5. Diabetes mellitus, type 2. 6. New onset seizure. 7. Hypertension. 8. Peripheral neuropathy. COMPLICATIONS: None. ADVERSE REACTIONS: None. PROCEDURES: None. CONSULTATIONS: None. HOSPITAL COURSE: The patient was admitted on 05/28/2019, after being admitted to [facility] with altered mental status. He was diagnosed with bilateral occipital CVA, consistent with embolic shower. The MR angiogram showed nonspecific vessel narrowing. Carotid Dopplers were negative. Echo showed a dilated atrium, but no obvious thrombus. He was started on Eliquis and IV antibiotics for the right foot osteomyelitis. He was transferred here for continued antibiotics, wound VAC, and physical therapy. He has done amazingly well and so plans were made to get him scheduled for outpatient antibiotics and wound VAC. This was arranged on 06/09 and he was deemed stable for discharge to home. He will have outpatient followup with Dr. Sanz, his Infectious Disease doctor; Dr. Rose, his PCP; and Dr. Mcmillan, his general surgeon. He states he has his Eliquis at home, but he needed the Dilantin. He was here getting 100 mg t.i.d., but I changed it to 300 mg ER. He is to get a Dilantin level with his PCP in the next 3 to 5 days. PHYSICAL EXAMINATION: VITAL SIGNS: On the day of discharge; he is afebrile, heart rate is 59, respirations 18, oxygen saturation 98% on room air, blood pressure was 145/70. CARDIOVASCULAR SYSTEM: S1 and S2 plus. Rate and rhythm, regular. RESPIRATORY SYSTEM: Normal vesicular breath sounds. ABDOMEN: Soft and nontender. Bowel sounds heard in all quadrants. EXTREMITIES: Without cyanosis or clubbing. Right foot with wound VAC. CENTRAL NERVOUS SYSTEM: Awake and responsive. Generalized weakness. LABORATORY DATA: Last blood test was done on the , where white count was 4.5, hemoglobin and hematocrit were 10.8 and 32.8. Sedimentation rate is down to 9, it was 10 on the last time. Sodium 143, potassium 3.8, BUN and creatinine are 12 and 0.99. CRP was down to 0.81. Blood sugars are 188, 128, 231, and 78. DISCHARGE MEDICATIONS: 1. Tylenol 650 q.6 p.r.n. 2. Eliquis 5 mg b.i.d. 3. Carvedilol 12.5 mg b.i.d. 4. Multaq 400 mg b.i.d. 5. Pepcid 20 mg b.i.d. 6. Lantus 10 units subcu b.i.d. 7. Zerbaxa 1.5 g vial q.8 hours. He is to be on it for a total of four weeks from his admission here, so I assume the end date, since we started this only after his arrival here, we would expect his end date to be around June 26. 8. Dilantin 300 mg ER daily. 9. Potassium 40 mEq daily. 10. Lyrica 100 mg t.i.d. 11. Crestor 40 mg daily. He is to be on 1800-calorie heart healthy ADA diet. Accu-Cheks with sliding scale coverage. Orthopedic precautions. Wound VAC care per home health. Outpatient followup with PCP and his specialists in 5 to 7 days. Discussed with the patient and his in detail and all questions answered. Total time spent on this discharge was 37 minutes. For full details, please see chart. Job ID: [id number]
== END 2019-06-09 11:12 | disposition home health service (06) | DRG 638 ==
LOC: NAV ACUTE 18:35
PROVIDERS: ADMIT Internal Medicine; ATTEND Internal Medicine
DX: E11.69 Type 2 diabetes mellitus with other specified complication (principal); M86.8X7 Other osteomyelitis, ankle and foot; I10 Essential (primary) hypertension; E78.5 Hyperlipidemia, unspecified; B96.20 Unspecified Escherichia coli [E. coli] as the cause of diseases classified elsewhere; B96.5 Pseudomonas (aeruginosa) (mallei) (pseudomallei) as the cause of diseases classified elsewhere; R56.9 Unspecified convulsions; I73.9 Peripheral vascular disease, unspecified; E11.621 Type 2 diabetes mellitus with foot ulcer; L97.529 Non-pressure chronic ulcer of other part of left foot with unspecified severity; L97.519 Non-pressure chronic ulcer of other part of right foot with unspecified severity; Z89.421 Acquired absence of other right toe(s); Z91.013 Allergy to seafood; Z79.899 Other long term (current) drug therapy; Z86.73 Personal history of transient ischemic attack (TIA), and cerebral infarction without residual deficits
CPT/HCPCS: 36416; 80053; 85025; 85652; 86140; 97602; 36415-59; J0695; J1815; J2543; J3490

== ENCOUNTER 2023-05-12 14:24 | Inpatient (IN) | payer MEDICARE ==
[2023-05-13] MEDS ORDERED: Ondansetron ODT 4 MG TAB SL PRN (13:53)
[2023-05-13] MEDS ORDERED: Bisacodyl 5 MG TAB PO PRN (13:53)
[2023-05-13] MEDS ORDERED: Glucagon 1 MG/ML KIT IM PRN (13:53)
[2023-05-13] MEDS ORDERED: Dextrose 50% Abboject 50 ML SYRINGE SLOW IVP PRN (13:53)
[2023-05-13] MEDS: Pregabalin 50 MG CAP PO SCH ×2 (15:45→20:48)
[2023-05-13] MEDS: HumaLOG 300 UNITS/3 ML VIAL SC PRN ×2 (17:11→20:45)
[2023-05-13] MEDS: Carvedilol 6.25 MG TAB PO SCH (17:12)
[2023-05-13] MEDS: Lantus 1000 UNITS/10 ML VIAL SC SCH (20:46)
[2023-05-13] MEDS: Senokot S 8.6-50 MG TAB PO SCH ×2 (20:47→20:50)
[2023-05-13] MEDS: Apixaban 5 MG TAB PO SCH (20:47)
[2023-05-13] MEDS: Dronedarone HCl 400 MG TAB PO SCH (20:48)
[2023-05-14] MEDS: HumaLOG 300 UNITS/3 ML VIAL SC PRN ×2 (05:27→11:44)
[2023-05-14 06:00] LABS: #Basophils 0.1 thou/uL (0.0-0.2); #Eosinphils 0.3 thou/uL (0.0-0.7); #Monocytes 0.5 thou/uL (0.11-0.59); #Neutrophils 3.6 thou/uL (1.40-6.50); %Basophils 1.4 % (0.0-1.0); %Eosinophils 4.9 % (0.0-10.0); %Lymphocytes 18.1 % (21.0-51.0); %Monocytes 8.8 % (0.0-10.0); %Neutrophils 66.8 % (42.0-75.0); Hematocrit 30.3 % (42.0-52.0); Hemoglobin 10.2 g/dL (14.0-18.0); Mean Corpuscular HGB CONC 33.8 g/dL (32.0-36.0); Mean Corpuscular Volume 85.8 fl (78.0-98.0); Mean Platelet Volume 8.7 fL (7.4-10.4); Platelet Count 144 10x3/uL (130-400); RBC Distribution Width 13.2 % (11.5-14.5); Red Blood Cell (RBC) Count 3.53 mill/uL (4.70-6.10); White Blood Cell (WBC) Count 5.4 10x3/uL (4.8-10.8)
[2023-05-14 06:19] LABS: ALT (SGPT) 19 U/L (8-55); AST (SGOT) 20 U/L (5-34); Albumin 3.2 g/dL (3.4-4.8); Alkaline Phosphatase 74 U/L (40-110); Anion Gap 13 mmol/L (10-20); BUN (Urea Nitrogen) 19 mg/dL (8.4-25.7); Bilirubin, Total 0.8 mg/dL (0.2-1.2); Calc. Creatinine Clearance 108 mL/min (70-130); Calcium 8.5 mg/dL (7.8-10.44); Carbon Dioxide 24 mmol/L (23-31); Chloride 105 mmol/L (98-107); Estimated GFR 86; Globulin 3.2 g/dL (2.4-3.5); Glucose 180 mg/dL (80-115); Potassium 3.2 mmol/L (3.5-5.1); Protein, Total 6.4 g/dL (5.8-8.1); Sodium 139 mmol/L (136-145)
[2023-05-14] MEDS: Dronedarone HCl 400 MG TAB PO SCH ×2 (08:18→20:29)
[2023-05-14] MEDS: Senokot S 8.6-50 MG TAB PO SCH ×2 (08:18→21:00)
[2023-05-14] MEDS: Rosuvastatin 10 MG TAB PO SCH (08:18)
[2023-05-14] MEDS: Carvedilol 6.25 MG TAB PO SCH ×2 (08:18→16:53)
[2023-05-14] MEDS: Phenytoin Extended Release 100 MG CAP PO SCH (08:18)
[2023-05-14] MEDS: Pregabalin 50 MG CAP PO SCH ×3 (08:19→20:28)
[2023-05-14] MEDS: Apixaban 5 MG TAB PO SCH ×2 (08:19→20:28)
[2023-05-14] MEDS: HYDROcodone/Acetaminophen 10/325 mg Tablet PO PRN (08:23)
[2023-05-14] MEDS ORDERED: Lantus 1000 UNITS/10 ML VIAL SC SCH (09:00)
[2023-05-14] MEDS: Acetaminophen 325 MG TAB PO PRN (13:50)
[2023-05-14] MEDS ORDERED: Potassium Chloride 20 MEQ TAB PO SCH (16:00)
[2023-05-14] MEDS: Lantus 1000 UNITS/10 ML VIAL SC SCH (20:53)
[2023-05-15] MEDS: Acetaminophen 325 MG TAB PO PRN (03:20)
[2023-05-15 06:13] LABS: Anion Gap 13 mmol/L (10-20); BUN (Urea Nitrogen) 18 mg/dL (8.4-25.7); Calc. Creatinine Clearance 112 mL/min (70-130); Calcium 8.7 mg/dL (7.8-10.44); Carbon Dioxide 25 mmol/L (23-31); Chloride 104 mmol/L (98-107); Estimated GFR 89; Glucose 129 mg/dL (80-115); Potassium 3.2 mmol/L (3.5-5.1); Sodium 139 mmol/L (136-145)
[2023-05-15] MEDS: Phenytoin Extended Release 100 MG CAP PO SCH (08:23)
[2023-05-15] MEDS: Dronedarone HCl 400 MG TAB PO SCH ×2 (08:23→21:04)
[2023-05-15] MEDS: Carvedilol 6.25 MG TAB PO SCH ×2 (08:23→16:29)
[2023-05-15] MEDS: Apixaban 5 MG TAB PO SCH ×2 (08:24→21:04)
[2023-05-15] MEDS: HYDROcodone/Acetaminophen 10/325 mg Tablet PO PRN ×3 (08:24→16:28)
[2023-05-15] MEDS: Lantus 1000 UNITS/10 ML VIAL SC SCH ×2 (08:25→21:04)
[2023-05-15] MEDS: Rosuvastatin 10 MG TAB PO SCH (08:25)
[2023-05-15] MEDS: Pregabalin 50 MG CAP PO SCH ×3 (08:25→21:02)
[2023-05-15] MEDS: Senokot S 8.6-50 MG TAB PO SCH ×2 (08:26→21:04)
[2023-05-15] MEDS: Cyclobenzaprine 10 MG TAB PO PRN (10:59)
[2023-05-15] MEDS: HumaLOG 300 UNITS/3 ML VIAL SC PRN ×2 (11:22→17:23)
[2023-05-15] MEDS ORDERED: Potassium Chloride 20 MEQ TAB PO SCH (12:15)
[2023-05-15] MEDS: Ibuprofen 200 MG TAB PO SCH (21:27)
[2023-05-15] MEDS ORDERED: Ibuprofen 400 MG TAB PO SCH (22:00)
[2023-05-16] MEDS: Ibuprofen 200 MG TAB PO SCH ×3 (05:48→21:11)
[2023-05-16 05:53] LABS: Anion Gap 11 mmol/L (10-20); BUN (Urea Nitrogen) 15 mg/dL (8.4-25.7); Calc. Creatinine Clearance 121 mL/min (70-130); Calcium 8.5 mg/dL (7.8-10.44); Carbon Dioxide 24 mmol/L (23-31); Chloride 105 mmol/L (98-107); Estimated GFR 95; Glucose 164 mg/dL (80-115); Magnesium 2.1 mg/dL (1.6-2.6); Potassium 3.2 mmol/L (3.5-5.1); Sodium 137 mmol/L (136-145)
[2023-05-16] MEDS: HumaLOG 300 UNITS/3 ML VIAL SC PRN ×4 (06:04→21:09)
[2023-05-16] MEDS: Phenytoin Extended Release 100 MG CAP PO SCH (08:48)
[2023-05-16] MEDS: Pregabalin 50 MG CAP PO SCH ×3 (08:48→21:11)
[2023-05-16] MEDS: Senokot S 8.6-50 MG TAB PO SCH ×2 (08:49→21:11)
[2023-05-16] MEDS: Acetaminophen 325 MG TAB PO PRN (08:49)
[2023-05-16] MEDS: Apixaban 5 MG TAB PO SCH ×2 (08:50→21:11)
[2023-05-16] MEDS: Rosuvastatin 10 MG TAB PO SCH (08:50)
[2023-05-16] MEDS: Dronedarone HCl 400 MG TAB PO SCH ×2 (08:50→21:11)
[2023-05-16] MEDS: Carvedilol 6.25 MG TAB PO SCH ×2 (08:50→17:08)
[2023-05-16] MEDS: Lantus 1000 UNITS/10 ML VIAL SC SCH ×2 (08:51→21:10)
[2023-05-16] MEDS ORDERED: Potassium Chloride 20 MEQ TAB PO SCH (11:30)
[2023-05-17] MEDS: Ibuprofen 200 MG TAB PO SCH ×3 (06:09→21:12)
[2023-05-17] MEDS: HumaLOG 300 UNITS/3 ML VIAL SC PRN ×4 (06:13→22:55)
[2023-05-17] MEDS: Lantus 1000 UNITS/10 ML VIAL SC SCH ×2 (09:12→21:14)
[2023-05-17] MEDS: Phenytoin Extended Release 100 MG CAP PO SCH (09:13)
[2023-05-17] MEDS: Carvedilol 6.25 MG TAB PO SCH ×2 (09:14→17:15)
[2023-05-17] MEDS: Pregabalin 50 MG CAP PO SCH ×3 (09:15→21:13)
[2023-05-17] MEDS: Lidocaine 4% Patch TD SCH (09:16)
[2023-05-17] MEDS: Rosuvastatin 10 MG TAB PO SCH (09:16)
[2023-05-17] MEDS: Senokot S 8.6-50 MG TAB PO SCH ×2 (09:16→21:13)
[2023-05-17] MEDS: Dronedarone HCl 400 MG TAB PO SCH ×2 (09:16→21:14)
[2023-05-17] MEDS: Potassium Chloride 20 MEQ TAB PO SCH (09:16)
[2023-05-17] MEDS: Apixaban 5 MG TAB PO SCH ×2 (09:16→21:14)
[2023-05-17 09:27] LABS: Anion Gap 12 mmol/L (10-20); BUN (Urea Nitrogen) 20 mg/dL (8.4-25.7); Calc. Creatinine Clearance 104 mL/min (70-130); Calcium 8.8 mg/dL (7.8-10.44); Carbon Dioxide 24 mmol/L (23-31); Chloride 105 mmol/L (98-107); Estimated GFR 82; Glucose 162 mg/dL (80-115); Potassium 3.4 mmol/L (3.5-5.1); Sodium 138 mmol/L (136-145)
[2023-05-17] MEDS: Transdermal Patch Removal TOP SCH (22:46)
[2023-05-18] MEDS: Ibuprofen 200 MG TAB PO SCH ×3 (05:16→20:41)
[2023-05-18] MEDS: Senokot S 8.6-50 MG TAB PO SCH ×2 (07:53→20:40)
[2023-05-18] MEDS: Potassium Chloride 20 MEQ TAB PO SCH (07:53)
[2023-05-18] MEDS: Rosuvastatin 10 MG TAB PO SCH (07:53)
[2023-05-18] MEDS: Dronedarone HCl 400 MG TAB PO SCH ×2 (07:53→20:41)
[2023-05-18] MEDS: Phenytoin Extended Release 100 MG CAP PO SCH (07:53)
[2023-05-18] MEDS: Carvedilol 6.25 MG TAB PO SCH ×2 (07:53→16:13)
[2023-05-18] MEDS: Apixaban 5 MG TAB PO SCH ×2 (07:53→20:41)
[2023-05-18] MEDS: Pregabalin 50 MG CAP PO SCH ×3 (07:54→20:40)
[2023-05-18] MEDS: Lidocaine 4% Patch TD SCH (07:54)
[2023-05-18] MEDS: Lantus 1000 UNITS/10 ML VIAL SC SCH ×2 (07:57→20:42)
[2023-05-18] MEDS: HumaLOG 300 UNITS/3 ML VIAL SC PRN (11:49)
[2023-05-18] MEDS: Transdermal Patch Removal TOP SCH (20:49)
[2023-05-19] MEDS: Ibuprofen 200 MG TAB PO SCH ×3 (05:57→20:47)
[2023-05-19 06:34] LABS: Anion Gap 13 mmol/L (10-20); BUN (Urea Nitrogen) 21 mg/dL (8.4-25.7); Calc. Creatinine Clearance 113 mL/min (70-130); Calcium 8.8 mg/dL (7.8-10.44); Carbon Dioxide 24 mmol/L (23-31); Chloride 107 mmol/L (98-107); Estimated GFR 90; Glucose 102 mg/dL (80-115); Magnesium 2.2 mg/dL (1.6-2.6); Potassium 3.2 mmol/L (3.5-5.1); Sodium 141 mmol/L (136-145)
[2023-05-19] MEDS: Lidocaine 4% Patch TD SCH (08:50)
[2023-05-19] MEDS: Lantus 1000 UNITS/10 ML VIAL SC SCH ×2 (08:51→20:50)
[2023-05-19] MEDS: Dronedarone HCl 400 MG TAB PO SCH ×2 (08:54→20:47)
[2023-05-19] MEDS: Phenytoin Extended Release 100 MG CAP PO SCH (08:54)
[2023-05-19] MEDS: Carvedilol 6.25 MG TAB PO SCH ×2 (08:55→16:46)
[2023-05-19] MEDS: Cyclobenzaprine 10 MG TAB PO PRN ×2 (08:55→20:48)
[2023-05-19] MEDS: Apixaban 5 MG TAB PO SCH ×2 (08:55→20:46)
[2023-05-19] MEDS: Rosuvastatin 10 MG TAB PO SCH (08:55)
[2023-05-19] MEDS: Potassium Chloride 20 MEQ TAB PO SCH (08:56)
[2023-05-19] MEDS: Pregabalin 50 MG CAP PO SCH ×3 (08:56→20:46)
[2023-05-19] MEDS: Acetaminophen 325 MG TAB PO PRN ×2 (08:56→12:42)
[2023-05-19] MEDS: Senokot S 8.6-50 MG TAB PO SCH ×2 (09:01→20:47)
[2023-05-19] MEDS: HumaLOG 300 UNITS/3 ML VIAL SC PRN (11:33)
[2023-05-19] MEDS: Transdermal Patch Removal TOP SCH (21:22)
[2023-05-20] MEDS: Ibuprofen 200 MG TAB PO SCH ×3 (05:26→21:09)
[2023-05-20] MEDS: Lidocaine 4% Patch TD SCH (08:47)
[2023-05-20] MEDS: Lantus 1000 UNITS/10 ML VIAL SC SCH ×2 (08:48→20:27)
[2023-05-20] MEDS: Phenytoin Extended Release 100 MG CAP PO SCH (08:49)
[2023-05-20] MEDS: Rosuvastatin 10 MG TAB PO SCH (08:50)
[2023-05-20] MEDS: Potassium Chloride 20 MEQ TAB PO SCH (08:50)
[2023-05-20] MEDS: Carvedilol 6.25 MG TAB PO SCH ×2 (08:50→17:13)
[2023-05-20] MEDS: Dronedarone HCl 400 MG TAB PO SCH ×2 (08:50→20:27)
[2023-05-20] MEDS: Apixaban 5 MG TAB PO SCH ×2 (08:51→20:27)
[2023-05-20] MEDS: Pregabalin 50 MG CAP PO SCH ×3 (08:51→20:26)
[2023-05-20] MEDS: Senokot S 8.6-50 MG TAB PO SCH ×2 (08:51→20:27)
[2023-05-20] MEDS: Cyclobenzaprine 10 MG TAB PO PRN (08:51)
[2023-05-20] MEDS: Acetaminophen 325 MG TAB PO PRN (08:52)
[2023-05-20] MEDS: HumaLOG 300 UNITS/3 ML VIAL SC PRN ×2 (11:38→20:32)
[2023-05-20] MEDS: Transdermal Patch Removal TOP SCH (20:28)
[2023-05-21] MEDS: Ibuprofen 200 MG TAB PO SCH ×3 (06:03→21:48)
[2023-05-21] MEDS: Acetaminophen 325 MG TAB PO PRN (08:42)
[2023-05-21] MEDS: Cyclobenzaprine 10 MG TAB PO PRN (08:42)
[2023-05-21] MEDS: Phenytoin Extended Release 100 MG CAP PO SCH (08:43)
[2023-05-21] MEDS: Lidocaine 4% Patch TD SCH (08:43)
[2023-05-21] MEDS: Pregabalin 50 MG CAP PO SCH ×3 (08:43→20:19)
[2023-05-21] MEDS: Senokot S 8.6-50 MG TAB PO SCH ×2 (08:44→20:19)
[2023-05-21] MEDS: Potassium Chloride 20 MEQ TAB PO SCH (08:44)
[2023-05-21] MEDS: Carvedilol 6.25 MG TAB PO SCH ×2 (08:44→17:11)
[2023-05-21] MEDS: Rosuvastatin 10 MG TAB PO SCH (08:45)
[2023-05-21] MEDS: Dronedarone HCl 400 MG TAB PO SCH ×2 (08:45→20:20)
[2023-05-21] MEDS: Apixaban 5 MG TAB PO SCH ×2 (08:45→20:20)
[2023-05-21] MEDS: Lantus 1000 UNITS/10 ML VIAL SC SCH ×2 (08:46→20:20)
[2023-05-21] MEDS: HumaLOG 300 UNITS/3 ML VIAL SC PRN ×2 (11:54→17:08)
[2023-05-21] MEDS: Transdermal Patch Removal TOP SCH (20:20)
[2023-05-22] MEDS: Ibuprofen 200 MG TAB PO SCH ×3 (05:30→22:23)
[2023-05-22 06:12] LABS: Hematocrit 28.9 % (42.0-52.0); Hemoglobin 9.3 g/dL (14.0-18.0); Platelet Count 215 10x3/uL (130-400)
[2023-05-22 06:25] LABS: Anion Gap 11 mmol/L (10-20); BUN (Urea Nitrogen) 22 mg/dL (8.4-25.7); Calc. Creatinine Clearance 107 mL/min (70-130); Calcium 8.8 mg/dL (7.8-10.44); Carbon Dioxide 25 mmol/L (23-31); Chloride 110 mmol/L (98-107); Estimated GFR 85; Glucose 64 mg/dL (80-115); Potassium 3.4 mmol/L (3.5-5.1); Sodium 143 mmol/L (136-145)
[2023-05-22] MEDS: Potassium Chloride 20 MEQ TAB PO SCH (08:34)
[2023-05-22] MEDS: Senokot S 8.6-50 MG TAB PO SCH ×2 (08:34→20:05)
[2023-05-22] MEDS: Carvedilol 6.25 MG TAB PO SCH ×2 (08:34→16:34)
[2023-05-22] MEDS: Rosuvastatin 10 MG TAB PO SCH (08:35)
[2023-05-22] MEDS: Apixaban 5 MG TAB PO SCH ×2 (08:35→20:05)
[2023-05-22] MEDS: Dronedarone HCl 400 MG TAB PO SCH ×2 (08:35→20:05)
[2023-05-22] MEDS: Phenytoin Extended Release 100 MG CAP PO SCH (08:36)
[2023-05-22] MEDS: Pregabalin 50 MG CAP PO SCH ×3 (08:36→20:05)
[2023-05-22] MEDS: Lantus 1000 UNITS/10 ML VIAL SC SCH (08:40)
[2023-05-22] MEDS: Lidocaine 4% Patch TD SCH (08:47)
[2023-05-22] MEDS ORDERED: Lantus 1000 UNITS/10 ML VIAL SC SCH (09:00)
[2023-05-22 18:28] LABS: Glucose POC Confirmation 54 mg/dL (80-115)
[2023-05-22] MEDS: Transdermal Patch Removal TOP SCH (20:06)
[2023-05-23] MEDS: Ibuprofen 200 MG TAB PO SCH ×3 (05:28→21:01)
[2023-05-23] MEDS: Phenytoin Extended Release 100 MG CAP PO SCH (09:30)
[2023-05-23] MEDS: Rosuvastatin 10 MG TAB PO SCH (09:30)
[2023-05-23] MEDS: Pregabalin 50 MG CAP PO SCH ×3 (09:30→20:53)
[2023-05-23] MEDS: Carvedilol 6.25 MG TAB PO SCH ×2 (09:31→17:08)
[2023-05-23] MEDS: Senokot S 8.6-50 MG TAB PO SCH ×2 (09:31→20:53)
[2023-05-23] MEDS: Potassium Chloride 20 MEQ TAB PO SCH (09:31)
[2023-05-23] MEDS: Dronedarone HCl 400 MG TAB PO SCH ×2 (09:31→20:53)
[2023-05-23] MEDS: Apixaban 5 MG TAB PO SCH ×2 (09:31→20:53)
[2023-05-23] MEDS: Lidocaine 4% Patch TD SCH (09:32)
[2023-05-23] MEDS: Lantus 1000 UNITS/10 ML VIAL SC SCH (11:28)
[2023-05-23] MEDS ORDERED: Lantus 1000 UNITS/10 ML VIAL SC SCH ×2 (11:30→20:30)
[2023-05-23] MEDS ORDERED: Furosemide 20 MG TAB PO SCH (12:00)
[2023-05-23] MEDS: HumaLOG 300 UNITS/3 ML VIAL SC PRN (17:00)
[2023-05-23] MEDS ORDERED: Calcium Carbonate 500 MG ChewTAB PO PRN ×2 (20:15)
[2023-05-23] MEDS: Transdermal Patch Removal TOP SCH (21:01)
[2023-05-24] MEDS: Ibuprofen 200 MG TAB PO SCH ×3 (05:24→22:36)
[2023-05-24 06:43] LABS: Anion Gap 9 mmol/L (10-20); BUN (Urea Nitrogen) 20 mg/dL (8.4-25.7); Calc. Creatinine Clearance 120 mL/min (70-130); Carbon Dioxide 29 mmol/L (23-31); Chloride 107 mmol/L (98-107); Estimated GFR 94; Glucose 90 mg/dL (80-115); Potassium 3.5 mmol/L (3.5-5.1); Sodium 141 mmol/L (136-145)
[2023-05-24] MEDS: Dronedarone HCl 400 MG TAB PO SCH ×2 (08:09→20:23)
[2023-05-24] MEDS: Phenytoin Extended Release 100 MG CAP PO SCH (08:09)
[2023-05-24] MEDS: Carvedilol 6.25 MG TAB PO SCH ×2 (08:10→17:01)
[2023-05-24] MEDS: Apixaban 5 MG TAB PO SCH ×2 (08:10→20:24)
[2023-05-24] MEDS: Pregabalin 50 MG CAP PO SCH ×3 (08:11→20:24)
[2023-05-24] MEDS: Potassium Chloride 20 MEQ TAB PO SCH (08:12)
[2023-05-24] MEDS: Rosuvastatin 10 MG TAB PO SCH (08:12)
[2023-05-24] MEDS: Senokot S 8.6-50 MG TAB PO SCH ×2 (08:12→20:24)
[2023-05-24] MEDS: Lidocaine 4% Patch TD SCH (08:13)
[2023-05-24] MEDS: Lantus 1000 UNITS/10 ML VIAL SC SCH ×2 (08:14→20:25)
[2023-05-24] MEDS: Acetaminophen 325 MG TAB PO PRN (08:19)
[2023-05-24] MEDS ORDERED: Lisinopril 10 MG TAB PO SCH (10:30)
[2023-05-24] MEDS ORDERED: Lisinopril 5 MG TAB PO SCH (11:00)
[2023-05-24] MEDS: HumaLOG 300 UNITS/3 ML VIAL SC PRN (12:06)
[2023-05-24] MEDS: Transdermal Patch Removal TOP SCH (20:24)
[2023-05-24 23:25] VITALS: BMI 25.5
[2023-05-25] MEDS: Ibuprofen 200 MG TAB PO SCH ×3 (05:42→20:50)
[2023-05-25 06:49] LABS: Hematocrit 29.4 % (42.0-52.0); Hemoglobin 9.4 g/dL (14.0-18.0); Platelet Count 192 10x3/uL (130-400)
[2023-05-25] MEDS: Carvedilol 6.25 MG TAB PO SCH ×2 (08:01→16:46)
[2023-05-25] MEDS: Potassium Chloride 20 MEQ TAB PO SCH (08:02)
[2023-05-25] MEDS: Apixaban 5 MG TAB PO SCH ×2 (08:04→20:49)
[2023-05-25] MEDS: Pregabalin 50 MG CAP PO SCH ×3 (08:05→21:03)
[2023-05-25] MEDS: Rosuvastatin 10 MG TAB PO SCH (08:05)
[2023-05-25] MEDS: Dronedarone HCl 400 MG TAB PO SCH ×2 (08:05→20:50)
[2023-05-25] MEDS: Lisinopril 5 MG TAB PO SCH (08:07)
[2023-05-25] MEDS: Senokot S 8.6-50 MG TAB PO SCH ×2 (08:08→20:49)
[2023-05-25] MEDS: Phenytoin Extended Release 100 MG CAP PO SCH (08:08)
[2023-05-25] MEDS: Lantus 1000 UNITS/10 ML VIAL SC SCH ×2 (08:11→20:55)
[2023-05-25] MEDS: Lidocaine 4% Patch TD SCH (08:20)
[2023-05-25] MEDS: HumaLOG 300 UNITS/3 ML VIAL SC PRN (11:31)
[2023-05-25] MEDS: Transdermal Patch Removal TOP SCH (20:50)
[2023-05-26 05:41] LABS: BUN (Urea Nitrogen) 20 mg/dL (8.4-25.7); Calc. Creatinine Clearance 124 mL/min (70-130); Calcium 8.8 mg/dL (7.6-10.4); Carbon Dioxide 23 mmol/L (23-31); Chloride 109 mmol/L (98-107); Estimated GFR 95; Glucose 113 mg/dL (80-115); Potassium 3.6 mmol/L (3.5-5.1); Sodium 140 mmol/L (136-145)
[2023-05-26 05:42] LABS: Anion Gap 12 mmol/L (10-20)
[2023-05-26] MEDS: Ibuprofen 200 MG TAB PO SCH ×3 (05:52→21:26)
[2023-05-26] MEDS: Phenytoin Extended Release 100 MG CAP PO SCH (08:23)
[2023-05-26] MEDS: Potassium Chloride 20 MEQ TAB PO SCH (08:23)
[2023-05-26] MEDS: Carvedilol 6.25 MG TAB PO SCH ×2 (08:24→16:50)
[2023-05-26] MEDS: Dronedarone HCl 400 MG TAB PO SCH ×2 (08:24→21:27)
[2023-05-26] MEDS: Rosuvastatin 10 MG TAB PO SCH (08:24)
[2023-05-26] MEDS: Apixaban 5 MG TAB PO SCH ×2 (08:24→21:27)
[2023-05-26] MEDS: Lisinopril 5 MG TAB PO SCH (08:25)
[2023-05-26] MEDS: Pregabalin 50 MG CAP PO SCH ×3 (08:25→21:27)
[2023-05-26] MEDS: Senokot S 8.6-50 MG TAB PO SCH ×2 (08:26→21:27)
[2023-05-26] MEDS: Lidocaine 4% Patch TD SCH (08:27)
[2023-05-26] MEDS: Lantus 1000 UNITS/10 ML VIAL SC SCH ×2 (08:27→21:07)
[2023-05-26] MEDS: Transdermal Patch Removal TOP SCH (21:30)
[2023-05-27] MEDS: Ibuprofen 200 MG TAB PO SCH ×3 (06:04→21:29)
[2023-05-27] MEDS: Lidocaine 4% Patch TD SCH (08:55)
[2023-05-27] MEDS: Lantus 1000 UNITS/10 ML VIAL SC SCH ×2 (08:55→21:30)
[2023-05-27] MEDS: Dronedarone HCl 400 MG TAB PO SCH ×2 (08:58→20:20)
[2023-05-27] MEDS: Phenytoin Extended Release 100 MG CAP PO SCH (08:58)
[2023-05-27] MEDS: Potassium Chloride 20 MEQ TAB PO SCH (08:59)
[2023-05-27] MEDS: Senokot S 8.6-50 MG TAB PO SCH ×2 (08:59→20:20)
[2023-05-27] MEDS: Apixaban 5 MG TAB PO SCH ×2 (08:59→20:20)
[2023-05-27] MEDS: Pregabalin 50 MG CAP PO SCH ×3 (09:01→20:20)
[2023-05-27] MEDS: Carvedilol 6.25 MG TAB PO SCH ×2 (09:01→17:30)
[2023-05-27] MEDS: Rosuvastatin 10 MG TAB PO SCH (09:01)
[2023-05-27] MEDS: Lisinopril 5 MG TAB PO SCH (09:02)
[2023-05-27] MEDS: Acetaminophen 325 MG TAB PO PRN (09:02)
[2023-05-27] MEDS: HumaLOG 300 UNITS/3 ML VIAL SC PRN (12:09)
[2023-05-27] MEDS: Transdermal Patch Removal TOP SCH (20:20)
[2023-05-28] MEDS: Ibuprofen 200 MG TAB PO SCH (05:30)
[2023-05-28] MEDS: Lidocaine 4% Patch TD SCH (08:51)
[2023-05-28] MEDS: Phenytoin Extended Release 100 MG CAP PO SCH (08:51)
[2023-05-28] MEDS: Pregabalin 50 MG CAP PO SCH (08:51)
[2023-05-28] MEDS: Acetaminophen 325 MG TAB PO PRN (08:53)
[2023-05-28] MEDS: Potassium Chloride 20 MEQ TAB PO SCH (08:53)
[2023-05-28] MEDS: Senokot S 8.6-50 MG TAB PO SCH (08:54)
[2023-05-28] MEDS: Dronedarone HCl 400 MG TAB PO SCH (08:54)
[2023-05-28] MEDS: Carvedilol 6.25 MG TAB PO SCH (08:54)
[2023-05-28] MEDS: Apixaban 5 MG TAB PO SCH (08:54)
[2023-05-28] MEDS: Rosuvastatin 10 MG TAB PO SCH (08:54)
[2023-05-28] MEDS: Lisinopril 5 MG TAB PO SCH (08:54)
[2023-05-28] MEDS: Lantus 1000 UNITS/10 ML VIAL SC SCH (08:55)
[2023-05-28 12:45] VITALS: BP 146/80; TEMP 98.2
== END 2023-05-28 14:09 | disposition home or self-care (01) | DRG 560 ==
LOC: NAV ACUTE 05-13 12:44
PROVIDERS: ADMIT Family Medicine; ATTEND Family Medicine
DX: S72.145D Nondisplaced intertrochanteric fracture of left femur, subsequent encounter for closed fracture with routine healing (principal); L97.429 Non-pressure chronic ulcer of left heel and midfoot with unspecified severity; R53.81 Other malaise; R53.1 Weakness; E11.621 Type 2 diabetes mellitus with foot ulcer; I10 Essential (primary) hypertension; E78.5 Hyperlipidemia, unspecified; I48.91 Unspecified atrial fibrillation; F10.90 Alcohol use, unspecified, uncomplicated; L97.519 Non-pressure chronic ulcer of other part of right foot with unspecified severity; Z89.431 Acquired absence of right foot; Z90.89 Acquired absence of other organs; Z98.890 Other specified postprocedural states; Z91.013 Allergy to seafood; Z72.0 Tobacco use; E11.51 Type 2 diabetes mellitus with diabetic peripheral angiopathy without gangrene; Z79.01 Long term (current) use of anticoagulants; Z79.4 Long term (current) use of insulin; Z79.899 Other long term (current) drug therapy; E87.6 Hypokalemia; G40.909 Epilepsy, unspecified, not intractable, without status epilepticus
CPT/HCPCS: 36415; 36416; 80048; 80053; 83735; 85014; 85018; 85025; 85049; 97602; J1815

== ENCOUNTER 2023-06-21 22:51 | Emergency (ER) | payer MEDICARE ==
[2023-06-21] MEDS ORDERED: Sodium Chloride 0.9% 1,000 ML ONE (23:23)
[2023-06-21] MEDS ORDERED: Acetaminophen 500 MG TAB ONE (23:23)
[2023-06-21 23:27] LABS: #Lymphocytes 0.4 thou/uL (1.20-3.40); #Monocytes 0.8 thou/uL (0.11-0.59); #Neutrophils 6.4 thou/uL (1.40-6.50); %Basophils 0.4 % (0.0-1.0); %Eosinophils 0.1 % (0.0-10.0); %Lymphocytes 5.5 % (21.0-51.0); %Monocytes 10.1 % (0.0-10.0); %Neutrophils 83.9 % (42.0-75.0); Hematocrit 37.9 % (42.0-52.0); Hemoglobin 12.2 g/dL (14.0-18.0); Mean Corpuscular HGB CONC 32.2 g/dL (32.0-36.0); Mean Corpuscular Hemoglobin 27.5 pg (27.0-31.0); Mean Corpuscular Volume 85.5 fl (78.0-98.0); Mean Platelet Volume 8.8 fL (7.4-10.4); Platelet Count 98 10x3/uL (130-400); RBC Distribution Width 13.3 % (11.5-14.5); Red Blood Cell (RBC) Count 4.44 mill/uL (4.70-6.10); White Blood Cell (WBC) Count 7.6 10x3/uL (4.8-10.8)
[2023-06-21 23:37] LABS: ALT (SGPT) 19 U/L (8-55); AST (SGOT) 17 U/L (5-34); Albumin 3.7 g/dL (3.4-4.8); Alkaline Phosphatase 106 U/L (40-110); Anion Gap 16 mmol/L (10-20); BUN (Urea Nitrogen) 15 mg/dL (8.4-25.7); Bilirubin, Total 1.2 mg/dL (0.2-1.2); Calc. Creatinine Clearance 0 mL/min (70-130); Carbon Dioxide 23 mmol/L (23-31); Chloride 98 mmol/L (98-107); Estimated GFR 69; Globulin 3.9 g/dL (2.4-3.5); Glucose 253 mg/dL (80-115); Potassium 3.9 mmol/L (3.5-5.1); Protein, Total 7.6 g/dL (5.8-8.1); Sodium 133 mmol/L (136-145)
[2023-06-22 00:19] LABS: SARS-CoV-2 NAA Rapid Test Not Detected (NotDetected)
[2023-06-22 00:57] LABS: Bilirubin Small (Negative); Blood, Urine Large (Negative); Glucose, Urine (Dipstick) 100 mg/dL (Negative); Ketone, Urine 40 mg/dL (Negative); Leukocyte Negative (Negative); Nitrite Negative (Negative); Protein, Urine (Dipstick) > or equal to 300 mg/dL (Neg-Trace); Specific Gravity, Urine 1.025 (1.005-1.030); Urobilinogen > or = 8.0 mg/dL (Less than 2); pH, Urine 5.5 (5.0-9.0)
[2023-06-22 00:58] LABS: Clarity Hazy (Clear)
[2023-06-22 01:04] LABS: Bacteria/HPF 1+ HPF (None Seen); CAUTI Indications for Culture Fever or rigors; Mucous/LPF 1+ LPF (<2+); Squamous Epithelial 0-3 HPF (0-3); WBC/HPF 0-3 HPF (0-3)
[2023-06-22 01:05] LABS: Urine Culture Reflex No No
[2023-06-22] MEDS ORDERED: cefTRIAXone (ROCEPHIN) 1 GM VIAL ONE (03:25)
[2023-06-22] MEDS ORDERED: Sodium Chloride 0.9% 100 ML ONE (03:25)
== END 2023-06-22 10:55 | disposition home or self-care (01) ==
LOC: NAV ERS 22:51
DX: R50.9 Fever, unspecified (principal); R77.8 Other specified abnormalities of plasma proteins; L08.9 Local infection of the skin and subcutaneous tissue, unspecified; I12.9 Hypertensive chronic kidney disease with stage 1 through stage 4 chronic kidney disease, or unspecified chronic kidney disease; E11.22 Type 2 diabetes mellitus with diabetic chronic kidney disease; N18.9 Chronic kidney disease, unspecified; E78.00 Pure hypercholesterolemia, unspecified; I48.91 Unspecified atrial fibrillation; Z20.822 Contact with and (suspected) exposure to COVID-19; Z99.2 Dependence on renal dialysis; Z79.01 Long term (current) use of anticoagulants; Z79.4 Long term (current) use of insulin; Z79.899 Other long term (current) drug therapy
CPT/HCPCS: 71045; 80053; 81001; 83605; 83880; 84484; 85025; 87040; 87077; 87149; 87186; 93005; 96361; 96365; J0696; J3490; J7050

== ENCOUNTER 2024-01-07 18:08 | Emergency (ER) | payer MEDICARE | END 2024-01-07 18:44 | disposition home or self-care (01) | LOC: NAV ERS 18:08 | DX: T83.031A Leakage of indwelling urethral catheter, initial encounter (principal); R03.0 Elevated blood-pressure reading, without diagnosis of hypertension; E11.9 Type 2 diabetes mellitus without complications; I10 Essential (primary) hypertension; Z79.899 Other long term (current) drug therapy; Z79.01 Long term (current) use of anticoagulants; Z79.4 Long term (current) use of insulin; I48.91 Unspecified atrial fibrillation | CPT/HCPCS: 99283 ==

== ENCOUNTER 2024-01-19 13:43 | Inpatient (IN) | payer MEDICARE ==
[2024-01-19] MEDS ORDERED: Senokot S 8.6-50 MG TAB PO PRN (14:23)
[2024-01-19] MEDS ORDERED: Ondansetron ODT 4 MG TAB PO PRN (14:23)
[2024-01-19] MEDS ORDERED: Dextrose 50% Abboject 50 ML SYRINGE SLOW IVP PRN (14:26)
[2024-01-19] MEDS ORDERED: Glucagon 1 MG/ML KIT IM PRN (14:26)
[2024-01-19] MEDS: Carvedilol 6.25 MG TAB PO SCH (18:16)
[2024-01-19] MEDS: HumaLOG 300 UNITS/3 ML VIAL SC PRN (20:13)
[2024-01-19] MEDS: Pregabalin 50 MG CAP PO SCH (20:14)
[2024-01-19] MEDS: Apixaban 5 MG TAB PO SCH (20:14)
[2024-01-19] MEDS: Famotidine 20 MG TAB PO SCH (20:14)
[2024-01-19] MEDS: Lantus 1000 UNITS/10 ML VIAL SC SCH (20:15)
[2024-01-19] MEDS ORDERED: Cefuroxime 250 MG TAB PO SCH (21:00)
[2024-01-20 06:54] LABS: ALT (SGPT) 38 U/L (8-55); AST (SGOT) 54 U/L (5-34); Albumin 2.5 g/dL (3.4-4.8); Alkaline Phosphatase 76 U/L (40-110); Anion Gap 11 mmol/L (10-20); BUN (Urea Nitrogen) 15 mg/dL (8.4-25.7); Bilirubin, Total 0.3 mg/dL (0.2-1.2); Calc. Creatinine Clearance 99 mL/min (70-130); Calcium 8.6 mg/dL (7.8-10.44); Carbon Dioxide 27 mmol/L (23-31); Chloride 99 mmol/L (98-107); Estimated GFR 97; Glucose 161 mg/dL (80-115); Protein, Total 7.5 g/dL (5.8-8.1); Sodium 133 mmol/L (136-145)
[2024-01-20 06:55] LABS: #Eosinphils 0.2 thou/uL (0.0-0.7); #Monocytes 0.6 thou/uL (0.11-0.59); #Neutrophils 5.2 thou/uL (1.40-6.50); %Basophils 0.6 % (0.0-1.0); %Eosinophils 2.7 % (0.0-10.0); %Lymphocytes 13.8 % (21.0-51.0); %Monocytes 8.6 % (0.0-10.0); %Neutrophils 74.3 % (42.0-75.0); Hematocrit 30.6 % (42.0-52.0); Hemoglobin 9.1 g/dL (14.0-18.0); Mean Corpuscular HGB CONC 29.6 g/dL (32.0-36.0); Mean Corpuscular Hemoglobin 22.4 pg (27.0-31.0); Mean Corpuscular Volume 75.6 fl (78.0-98.0); Mean Platelet Volume 5.7 fL (7.4-10.4); Platelet Count 348 10x3/uL (130-400); RBC Distribution Width 14.4 % (11.5-14.5); Red Blood Cell (RBC) Count 4.05 mill/uL (4.70-6.10); White Blood Cell (WBC) Count 7.1 10x3/uL (4.8-10.8)
[2024-01-20] MEDS: Cefdinir 300 MG CAP PO SCH (08:03)
[2024-01-20] MEDS: Carvedilol 6.25 MG TAB PO SCH (08:04)
[2024-01-20] MEDS: Lisinopril 5 MG TAB PO SCH (08:04)
[2024-01-20] MEDS: Rosuvastatin 10 MG TAB PO SCH (08:04)
[2024-01-20] MEDS: Lantus 1000 UNITS/10 ML VIAL SC SCH (08:08)
[2024-01-20] MEDS: Acetaminophen 325 MG TAB PO PRN (09:28)
[2024-01-20] MEDS: HumaLOG 300 UNITS/3 ML VIAL SC PRN (11:23)
[2024-01-20] MEDS: Phenytoin Extended Release 100 MG CAP PO SCH ×2 (14:52→14:57)
[2024-01-21 07:10] LABS: Thyroid Stimulating Hormone 2.571 uIU/mL (0.35-4.94)
[2024-01-21] MEDS: Phenytoin Extended Release 100 MG CAP PO SCH (08:07)
[2024-01-21] MEDS: Ferrous Sulfate 325 MG TAB PO SCH (08:10)
[2024-01-21] MEDS: Lantus 1000 UNITS/10 ML VIAL SC SCH ×2 (08:11→20:31)
[2024-01-21 12:15] LABS: Vitamin D, 25 Hydroxy 15.7 ng/ml (> 30.0)
[2024-01-21] MEDS: Melatonin 3 MG TAB PO SCH (20:29)
[2024-01-22] MEDS: Cholecalciferol 1,000 UNITS (25 MCG) TAB PO SCH (08:23)
[2024-01-22] MEDS: QUEtiapine 25 MG TAB PO SCH (19:47)
[2024-01-22] MEDS ORDERED: traZODone HCl 50 MG TAB PO SCH (21:00)
[2024-01-23] MEDS: Bisacodyl 5 MG TAB PO PRN (16:41)
[2024-01-24] MEDS ORDERED: Polyethylene Glycol 3350 17 GM Packet PO PRN (07:44)
[2024-01-24] MEDS: Polyethylene Glycol 3350 17 GM Packet PO SCH (08:55)
[2024-01-24] MEDS: Lantus 1000 UNITS/10 ML VIAL SC SCH (09:01)
[2024-01-25] MEDS: QUEtiapine 25 MG TAB PO SCH (20:25)
[2024-01-26 06:16] LABS: #Lymphocytes 0.9 thou/uL (1.20-3.40); #Monocytes 0.5 thou/uL (0.11-0.59); #Neutrophils 5.8 thou/uL (1.40-6.50); %Basophils 0.3 % (0.0-1.0); %Eosinophils 0.6 % (0.0-10.0); %Lymphocytes 11.9 % (21.0-51.0); %Monocytes 7.5 % (0.0-10.0); %Neutrophils 79.7 % (42.0-75.0); Hematocrit 30.4 % (42.0-52.0); Hemoglobin 9.3 g/dL (14.0-18.0); Mean Corpuscular HGB CONC 30.5 g/dL (32.0-36.0); Mean Corpuscular Hemoglobin 22.9 pg (27.0-31.0); Mean Platelet Volume 5.8 fL (7.4-10.4); Platelet Count 262 10x3/uL (130-400); RBC Distribution Width 14.3 % (11.5-14.5); Red Blood Cell (RBC) Count 4.05 mill/uL (4.70-6.10); White Blood Cell (WBC) Count 7.2 10x3/uL (4.8-10.8)
[2024-01-26 06:26] LABS: Anion Gap 14 mmol/L (10-20); BUN (Urea Nitrogen) 14 mg/dL (8.4-25.7); Calc. Creatinine Clearance 92 mL/min (70-130); Carbon Dioxide 30 mmol/L (23-31); Chloride 100 mmol/L (98-107); Estimated GFR 95; Sodium 140 mmol/L (136-145)
[2024-01-26 06:27] LABS: ALT (SGPT) 19 U/L (8-55); AST (SGOT) 20 U/L (5-34); Albumin 2.8 g/dL (3.4-4.8); Alkaline Phosphatase 78 U/L (40-110); Bilirubin, Total 0.3 mg/dL (0.2-1.2); Calcium 9.5 mg/dL (7.8-10.44); Globulin 5.9 g/dL (2.4-3.5); Glucose 71 mg/dL (80-115); Protein, Total 8.7 g/dL (5.8-8.1)
[2024-01-31 06:59] LABS: ALT (SGPT) 16 U/L (8-55); AST (SGOT) 20 U/L (5-34); Albumin 2.6 g/dL (3.4-4.8); Alkaline Phosphatase 78 U/L (40-110); Anion Gap 11 mmol/L (10-20); BUN (Urea Nitrogen) 14 mg/dL (8.4-25.7); Bilirubin, Total 0.3 mg/dL (0.2-1.2); Calc. Creatinine Clearance 89 mL/min (70-130); Carbon Dioxide 31 mmol/L (23-31); Chloride 100 mmol/L (98-107); Estimated GFR 94; Globulin 5.9 g/dL (2.4-3.5); Glucose 162 mg/dL (80-115); Protein, Total 8.5 g/dL (5.8-8.1); Sodium 138 mmol/L (136-145)
[2024-01-31 07:18] LABS: #Eosinphils 0.1 thou/uL (0.0-0.7); #Lymphocytes 0.7 thou/uL (1.20-3.40); #Monocytes 0.5 thou/uL (0.11-0.59); #Neutrophils 4.5 thou/uL (1.40-6.50); %Basophils 0.5 % (0.0-1.0); %Eosinophils 1.6 % (0.0-10.0); %Lymphocytes 12.3 % (21.0-51.0); %Monocytes 8.2 % (0.0-10.0); %Neutrophils 77.3 % (42.0-75.0); Hematocrit 27.5 % (42.0-52.0); Hemoglobin 8.1 g/dL (14.0-18.0); Hypochromia SLIGHT = 6-15 cells (100X) (0-5/hpf); MDiff Complete? YES; Mean Corpuscular HGB CONC 29.3 g/dL (32.0-36.0); Mean Corpuscular Hemoglobin 22.2 pg (27.0-31.0); Mean Corpuscular Volume 75.7 fl (78.0-98.0); Mean Platelet Volume 6.2 fL (7.4-10.4); Platelet Adequacy Comment Appears Adequate; Platelet Count 194 10x3/uL (130-400); RBC Distribution Width 14.7 % (11.5-14.5); Red Blood Cell (RBC) Count 3.63 mill/uL (4.70-6.10); White Blood Cell (WBC) Count 5.9 10x3/uL (4.8-10.8)
[2024-01-31] MEDS: Lantus 1000 UNITS/10 ML VIAL SC SCH (11:25)
[2024-02-01 05:06] VITALS: BMI 19.3
[2024-02-01] MEDS: Lantus 1000 UNITS/10 ML VIAL SC SCH ×2 (08:15→11:24)
[2024-02-02] MEDS: Lantus 1000 UNITS/10 ML VIAL SC SCH (07:36)
[2024-02-02 18:50] LABS: Bilirubin Negative (Negative); Blood, Urine Small (Negative); Glucose, Urine (Dipstick) Negative (Negative); Ketone, Urine Negative (Negative); Leukocyte Small (Negative); Nitrite Positive (Negative); Protein, Urine (Dipstick) 30 mg/dL (Neg-Trace)
[2024-02-02 18:51] LABS: Clarity Hazy (Clear)
[2024-02-02 18:56] LABS: Bacteria/HPF 1+ HPF (None Seen); CAUTI Indications for Culture Alt mental st,lethar; RBC/HPF 0-3 HPF (0-3); Squamous Epithelial 0-3 HPF (0-3); WBC/HPF 0-3 HPF (0-3)
[2024-02-02 18:57] LABS: Urine Culture Reflex No No
[2024-02-02] MEDS: Lidocaine 1% (PF) 30 ML VIAL FS SCH (22:21)
[2024-02-02] MEDS: Lidocaine 1% (PF) 30 ML VIAL ONE (22:21)
[2024-02-02] MEDS: cefTRIAXone (ROCEPHIN) 1 GM VIAL IM SCH (22:21)
[2024-02-03 07:47] VITALS: BMI 19.3
[2024-02-04 07:32] VITALS: TEMP 98.4
[2024-02-04 07:46] VITALS: BP 129/54
== END 2024-02-04 18:00 | DRG 948 ==
LOC: NAV ACUTE 16:30
PROVIDERS: ADMIT Student in an Organized Health Care Education/Training Program; ATTEND Student in an Organized Health Care Education/Training Program
DX: R53.81 Other malaise (principal); N39.0 Urinary tract infection, site not specified; F03.911 Unspecified dementia, unspecified severity, with agitation; Z68.1 Body mass index [BMI] 19.9 or less, adult; T83.511D Infection and inflammatory reaction due to indwelling urethral catheter, subsequent encounter; I10 Essential (primary) hypertension; E11.51 Type 2 diabetes mellitus with diabetic peripheral angiopathy without gangrene; I48.91 Unspecified atrial fibrillation; B96.20 Unspecified Escherichia coli [E. coli] as the cause of diseases classified elsewhere; G40.909 Epilepsy, unspecified, not intractable, without status epilepticus; D50.9 Iron deficiency anemia, unspecified; R63.4 Abnormal weight loss; E55.9 Vitamin D deficiency, unspecified; G47.00 Insomnia, unspecified; M25.552 Pain in left hip; Z90.89 Acquired absence of other organs; Z89.431 Acquired absence of right foot; Z71.3 Dietary counseling and surveillance; K59.00 Constipation, unspecified; S91.302A Unspecified open wound, left foot, initial encounter; S91.301A Unspecified open wound, right foot, initial encounter; Z79.4 Long term (current) use of insulin
CPT/HCPCS: 36415; 36416; 80053; 81001; 82306; 82607; 84443; 85025; 87077; 87086; 87186; J0696; J1815; J2001

== ENCOUNTER 2025-04-15 11:20 | Emergency (ER) | payer MEDICARE ==
[2025-04-15 12:27] LABS: #Basophils 0.1 thou/uL (0.0-0.2); #Eosinophils 0.0 thou/uL (0.0-0.7); #Lymphocytes 0.5 thou/uL (1.20-3.40); #Monocytes 0.6 thou/uL (0.11-0.59); #Neutrophils 7.5 thou/uL (1.40-6.50); %Basophils 0.6 % (0.0-1.0); %Eosinophils 0.5 % (0.0-10.0); %Lymphocytes 5.8 % (21.0-51.0); %Monocytes 6.7 % (0.0-10.0); %Neutrophils 86.5 % (42.0-75.0); Hematocrit 41.0 % (42.0-52.0); Hemoglobin 13.0 g/dL (14.0-18.0); Mean Corpuscular Hemoglobin 25.1 pg (27.0-31.0); Mean Corpuscular Volume 79.3 fl (78.0-98.0); Platelet Count 159 10x3/uL (130-400); Red Blood Cell (RBC) Count 5.18 mill/uL (4.70-6.10); White Blood Cell (WBC) Count 8.7 10x3/uL (4.8-10.8)
[2025-04-15 12:43] LABS: ALT (SGPT) Less than 4 U/L (Less than 45); AST (SGOT) 18 U/L (11-34); Albumin 3.7 g/dL (3.1-4.5); Alkaline Phosphatase 75 U/L (40-110); Anion Gap 18 mmol/L (10-20); BUN (Urea Nitrogen) 19 mg/dL (8.4-25.7); Bilirubin, Total 1.7 mg/dL (0.3-1.2); Calc. Creatinine Clearance 0 mL/min (70-130); Calcium 9.2 mg/dL (7.8-10.44); Carbon Dioxide 25 mmol/L (23-31); Chloride 97 mmol/L (98-107); Globulin 5.0 g/dL (2.4-3.5); Glucose 151 mg/dL (80-115); Potassium 4.3 mmol/L (3.5-5.1); Sodium 136 mmol/L (136-145)
[2025-04-15 12:56] LABS: Troponin I 0.979 ng/mL (< 0.028)
[2025-04-15] MEDS ORDERED: Aspirin Chewable 81 MG TAB ONE ×2 (13:34→13:39)
[2025-04-15] MEDS ORDERED: Enoxaparin 100 MG (1 mL) SYRINGE ONE (13:35)
[2025-04-15 13:41] LABS: Glucose, Urine (Dipstick) Negative (Negative); Leukocyte Small (Negative); Protein, Urine (Dipstick) > or equal to 300 mg/dL (Neg-Trace); Specific Gravity, Urine 1.025 (1.005-1.030)
[2025-04-15 13:43] LABS: Bacteria/HPF 4+ HPF (None Seen); CAUTI Indications for Culture Alt mental st,lethar; WBC/HPF Greater Than 50 HPF (0-3)
[2025-04-15 13:44] LABS: Urine Culture Reflex Yes Yes
[2025-04-15 14:34] LABS: Bicarbonate (HCO3v) 28.3 mmol/L (22.0-28.0); CO2 Tension (PvCO2) 41.2 mmHg (42.0-51.0); vO2 Saturation-calc 50.1 % (60.0-85.0)
[2025-04-15 14:35] LABS: Calcium, Ionized 1.10 mmol/L (1.15-1.33); Chloride 99 mmol/L (98-107); Hemoglobin - Calc 11.7 g/dL (14.0-18.0); Potassium 4.0 mmol/L (3.5-5.1); Sodium 136 mmol/L (138-145); T. Carbon Dioxide 29.5 mmol/L (22.0-28.0)
[2025-04-15] MEDS ORDERED: cefTRIAXone (ROCEPHIN) 1 GM VIAL ONE (15:29)
[2025-04-15 16:12] LABS: Troponin I 1.000 ng/mL (< 0.028)
== END 2025-04-15 18:14 | disposition short-term general hospital (02) ==
LOC: NAV ERS 11:20
DX: R07.2 Precordial pain (principal); E11.9 Type 2 diabetes mellitus without complications; I10 Essential (primary) hypertension; F17.290 Nicotine dependence, other tobacco product, uncomplicated
CPT/HCPCS: 36416; 71045; 80053; 80307; 81001; 82330; 82803; 83605; 83880; 84484; 85025; 87070; 87077; 87086; 87186; 87205; 93005; 96365; 96372; J0696; J1650